=== PATIENT | female | born 1990 | race African-American/Black ===

== ENCOUNTER 2016-10-03 21:26 | Emergency (ER) | payer SELFPAY ==
[~2016-10-03] VITALS: Ht 152.4 cm; Wt 45.0 kg
[2016-10-03 21:43] VITALS: BP 129/85; PULSE 100; RESP 18; TEMP 100; O2SAT 98
--- NOTE | 2016-10-03 22:07 | PD ---
HPI Chief Complaint: Abdominal Pain Time Seen by Provider: 22:00 Travel History International Travel<30 days: No Contact w/Intl Traveler<30days: No Traveled to known affect area: No History of Present Illness HPI 26yo F with PMH of nephrolithiasis, appendectomy presents to the ED with c/o generalized pain an hour prior to arrival. As per [facility], pt walked to them with normal mental status but blood glucose was 28 and 33 on separate machines. Pt given 25gm of D10. Blood glucose in the ED is 122. Pt states she has not eaten anything since yesterday. States pain is mainly in left flank to abdomen and down thighs. Pt has been here multiple times for abdominal pain. Pt is allergic to toradol. Denies any fever, chest pain, sob, n/v, diarrhea, vaginal bleeding or discharge, or possibility of . PFSH Past Medical History Asthma: No Blood Disorders: No Anxiety: No Depression: Yes Heart Rhythm Problems: No Cancer: No Cardiovascular Problems: No High Cholesterol: No Chemotherapy: No Chest Pain: No Congestive Heart Failure: No COPD: No Diabetes: No Diminished Hearing: No Endocrine: No Gastrointestinal Disorders: No Genitourinary: Yes (KIDNEY STONES) Immune Disorder: No Kidney Stones: Yes Musculoskeletal: No Neurologic: No Psychiatric: No Reproductive: Yes (HX OVARYAN CYST) Respiratory: No Immunizations Current: Yes Radiation Therapy: No Sleep Apnea: No Thyroid Disease: No ?: Not : 0 Para: 0 Miscarriage: 0 : 0 Ovarian Cysts: Yes Past Surgical History Abdominal Surgery: Yes (BOWEL SURGERY) Appendectomy: Yes Cholecystectomy: No Genitourinary Surgery: Yes (STENT RIGHT KIDNEY/LITHOTRIPSY) Neurologic Surgery: No Other Surgery: Yes Social History Alcohol Use: No Tobacco Use: Yes Substance Use: No (marijuan) Allergies-Medications (Allergen,Severity, Reaction): Coded Allergies: Toradol (Verified Allergy, Intermediate, Itching, 10/03/16) Reported Meds & Prescriptions Reported Meds & Active Scripts Active Acetaminophen Extra Strength (Acetaminophen) 500 Mg Cap 500 Mg PO Q6H PRN Cipro (Ciprofloxacin HCl) 250 Mg Tab 250 Mg PO BID 3 Days Review of Systems Except as stated in HPI: all other systems reviewed are Neg Physical Exam Narrative GENERAL: 26yo F crying. SKIN: Warm and dry. HEAD: Atraumatic. Normocephalic. EYES: Pupils equal and round at 3mm. EOMI. ENT: No nasal bleeding or discharge. Mucous membranes pink and moist. NECK: Trachea midline. No JVD. CARDIOVASCULAR: Regular rate and rhythm. No murmur appreciated. RESPIRATORY: No accessory muscle use. Clear to auscultation. Breath sounds equal bilaterally. GASTROINTESTINAL: Abdomen soft, very mild left flank ttp. No abdominal ttp. No rebound tenderness or guarding. MUSCULOSKELETAL: No obvious deformities. No clubbing. No cyanosis. No edema. NEUROLOGICAL: Awake and alert. No obvious cranial nerve deficits. Motor grossly within normal limits. Normal speech. PSYCHIATRIC: Appropriate mood and affect; insight and judgment normal. Data Data Last Documented VS Vital Signs Date Time Temp Pulse Resp B/P Pulse Ox O2 Delivery O2 Flow Rate FiO2 10/04/16 03:00 92 20 122/72 98 Room Air 10/03/16 21:43 100.0 Orders Complete Blood Count With Diff (10/03/16 22:00) Basic Metabolic Panel (Bmp) (10/03/16 22:00) Lactic Acid Sepsis Protocol (10/03/16 22:00) Urinalysis - C+S If Indicated (10/03/16 22:00) Ed Urine Pregnancytest Poc (10/03/16 22:00) Sodium Chlor 0.9% 1000 Ml Inj (Ns 1000 M (10/03/16 23:00) Acetaminophen (Tylenol) (10/03/16 23:15) Ed Poc Ultrasound (10/03/16 ) Cath For Specimen (10/03/16 23:12) Influenzae A/B Antigen (10/03/16 23:27) Urine Culture (10/04/16 00:20) Ceftriaxone Inj (Rocephin Inj) (10/04/16 01:00) Labs Laboratory Tests Test 10/03/16 10/03/16 10/04/16 22:15 22:38 00:20 Sodium Level 138 MEQ/L Potassium Level 3.7 MEQ/L Chloride Level 105 MEQ/L Carbon Dioxide Level 25.2 MEQ/L Anion Gap 8 MEQ/L Blood Urea Nitrogen 12 MG/DL Creatinine 0.88 MG/DL Estimat Glomerular Filtration 93 ML/MIN Rate Random Glucose 42 MG/DL Calcium Level 8.9 MG/DL White Blood Count 7.3 TH/MM3 Red Blood Count 3.95 MIL/MM3 Hemoglobin 13.4 GM/DL Hematocrit 39.5 % Mean Corpuscular Volume 100.2 FL Mean Corpuscular Hemoglobin 34.0 PG Mean Corpuscular Hemoglobin 33.9 % Concent Red Cell Distribution Width 13.0 % Platelet Count 237 TH/MM3 Mean Platelet Volume 9.1 FL Neutrophils (%) (Auto) 83.6 % Lymphocytes (%) (Auto) 8.6 % Monocytes (%) (Auto) 6.2 % Eosinophils (%) (Auto) 1.4 % Basophils (%) (Auto) 0.2 % Neutrophils # (Auto) 6.1 TH/MM3 Lymphocytes # (Auto) 0.6 TH/MM3 Monocytes # (Auto) 0.5 TH/MM3 Eosinophils # (Auto) 0.1 TH/MM3 Basophils # (Auto) 0.0 TH/MM3 CBC Comment DIFF FINAL Differential Comment Lactic Acid Level 1.4 mmol/L Urine Color YELLOW Urine Turbidity HAZY Urine pH 6.5 Urine Specific [place] 1.014 Urine Protein NEG mg/dL Urine Glucose (UA) 150 mg/dL Urine Ketones NEG mg/dL Urine Occult Blood NEG Urine Nitrite NEG Urine Bilirubin NEG Urine Urobilinogen LESS THAN 2.0 MG/DL Urine Leukocyte Esterase LARGE Urine RBC 6 /hpf Urine WBC 15 /hpf Urine Squamous Epithelial 19 /hpf Cells Urine Amorphous Sediment RARE Urine Bacteria OCC /hpf Urine Mucus FEW /lpf Microscopic Urinalysis Comment CULTURE INDICATED MDM Medical Decision Making Medical Screen Exam Complete: Yes Emergency Medical Condition: Yes Differential Diagnosis Nephrolithiasis vs. musculoskeletal pain vs. malingering vs. pyelonephritis vs. electrolyte abnormality vs. insulinoma Narrative Course 26yo F with PMH of nephrolithiasis here for generalized pain for an hour prior to coming. As per [facility], pt was hypoglycemic but normal mental status. Pt has no history of diabetes and denies taking any medications that were for diabetes. Pt now admits to having no money and not eating for a few days. States she is very hungry and wants food. Pt given food. Pt's blood glucose here in the ED was 122 after receiving 25gm of D10. Labs reviewed, no leukocytosis. Random glucose from lab was 42. I checked pt' s blood glucose again and it was 102. Pt has not been symptomatic at all in the ED. Unknown why the glucose was so low. Bedside US did not show any hydronephrosis. Influenza negative. Lactic acid is normal at 1.4. Pt is well appearing and not in distress. Given acetaminophen for generalized body pain. Abdominal exam is unremarkable. UA: large leukocyte, WBC 15. Pt given ceftriaxone 1gm IV. Strict return precautions given. Procedures Procedure Narrative Emergency department urinary tract ultrasound was performed with patient consent. Curvilinear probe was used in the transverse and sagittal views in the bilateral flank and suprapubic region without evidence of hydronephrosis. Pt had large bladder but urinated right after ultrasound. Diagnosis Primary Impression: UTI (urinary tract infection) Qualified Code: N39.0 - Urinary tract infection without hematuria, site unspecified Patient Instructions: General Instructions Departure Forms: Tests/Procedures Additional Instructions: Please follow up with PMD in 1-2 days for further evaluation of hypoglycemia. Return to the ED if symptoms worsen. Med/Other Pt SpecificInfo: Prescription(s) given Scripts Acetaminophen (Acetaminophen Extra Strength)500 Mg [id number] Mg PO Q6H PRN #20 CAP Ref 0 Prov:Christy Borrego DO 10/04/16 Ciprofloxacin (Cipro)250 Mg [id number] Mg PO BID 3 Days Ref 0 Prov:Christy Borrego DO 10/04/16 Disposition: 01 DISCHARGE HOME Condition: Stable Christy Borrego DO Oct 03, 2016 22:07
[2016-10-03 22:26] LABS: AUTOMATED NEUTROPHIL # 6.1 TH/MM3 (1.8-7.7); BASOPHIL % 0.2 % (0.0-2.0); EOSINOPHIL # 0.1 TH/MM3 (0-0.4); EOSINOPHIL % 1.4 % (0.0-4.0); HEMATOCRIT 39.5 % (35.0-46.0); HEMO FLAGS DIFF FINAL; LYMPH % 8.6 % (9.0-44.0); LYMPHOCYTE # 0.6 TH/MM3 (1.0-4.8); MEAN CELL VOLUME 100.2 FL (80.0-100.0); MEAN CORPUSCULAR HGB CONC 33.9 % (32.0-36.0); MONO % 6.2 % (0.0-8.0); NEUT % 83.6 % (16.0-70.0); PLATELET COUNT 237 TH/MM3 (150-450); RED BLOOD COUNT 3.95 MIL/MM3 (4.00-5.30); WHITE BLOOD COUNT 7.3 TH/MM3 (4.0-11.0)
[2016-10-03 23:00] VITALS: BP 126/70; PULSE 89; RESP 20; O2SAT 98
[2016-10-03] MEDS ORDERED: SODIUM CHLOR 0.9% 1000 ML INJ 1,000 ML IV ONE (23:00)
[2016-10-03] MEDS ORDERED: ACETAMINOPHEN 325 MG TAB PO ONE (23:15)
[2016-10-03 23:16] LABS: BICARBONATE 25.2 MEQ/L (21.0-32.0); POTASSIUM 3.7 MEQ/L (3.5-5.1)
[2016-10-04 00:39] LABS: BACTERIA, URINE OCC /hpf; BLOOD, URINE NEG (NEG); COMMENT (UR) CULTURE INDICATED; CULTURE IF INDICATED CULTURE INDICATED; GLUCOSE,URINE 150 mg/dL (NEG); KETONE, URINE NEG (NEG); MUCUS URINE FEW /lpf (OCC); NITRITE,URINE NEG (NEG); PH, URINE 6.5 (5.0-8.5); SQUAMOUS EPITHELIAL CELL URINE 19 /hpf (0-5); URINE COLOR YELLOW (YELLW/STRAW)
[2016-10-04] MEDS ORDERED: CIPR250T52 PO (00:53)
[2016-10-04] MEDS ORDERED: EXTR500C PO (00:54)
[2016-10-04] MEDS ORDERED: cefTRIAXone INJ 1,000 MG in SODIUM CHLORIDE 0.9% INJ 100 ML IV ONE (01:00)
[2016-10-04 03:00] VITALS: BP 122/72; PULSE 92; RESP 20; O2SAT 98
== END 2016-10-04 06:55 | disposition home or self-care (01) ==
LOC: NEPA 21:26
DX: N39.0 Urinary tract infection, site not specified (principal); B96.89 Other specified bacterial agents as the cause of diseases classified elsewhere; Z87.442 Personal history of urinary calculi
CPT/HCPCS: 80048; 81001; 83605; 84703; 85025; 87086; 87804; 96361; 96365; 96366; 99284; J0696; J7030

== ENCOUNTER 2017-01-02 14:07 | Emergency (ER) | payer OTHER ==
[~2017-01-02] VITALS: Ht 152.4 cm; Wt 43.0 kg
[~2017-01-02 14:07] MED LIST: CIPR250T52 PO; EXTR500C PO
[2017-01-02 15:24] VITALS: BP 101/75; PULSE 81; RESP 20; TEMP 97.8; O2SAT 95
[2017-01-02 15:59] LABS: AUTOMATED NEUTROPHIL # 2.2 TH/MM3 (1.8-7.7); BASOPHIL % 0.6 % (0.0-2.0); EOSINOPHIL # 0.1 TH/MM3 (0-0.4); EOSINOPHIL % 3.1 % (0.0-4.0); HEMO FLAGS DIFF FINAL; LYMPH % 32.7 % (9.0-44.0); LYMPHOCYTE # 1.4 TH/MM3 (1.0-4.8); MEAN CORPUSCULAR HEMOGLOBIN 34.4 PG (27.0-34.0); MEAN CORPUSCULAR HGB CONC 34.4 % (32.0-36.0); MONO % 10.4 % (0.0-8.0); NEUT % 53.2 % (16.0-70.0); PLATELET COUNT 267 TH/MM3 (150-450); RED CELL DISTRIBUTION WIDTH 13.1 % (11.6-17.2); WHITE BLOOD COUNT 4.2 TH/MM3 (4.0-11.0)
[2017-01-02 16:11] LABS: ANION GAP 7 MEQ/L (5-15); AST (GOT) 14 U/L (15-37); BICARBONATE 28.3 MEQ/L (21.0-32.0); BLOOD UREA NITROGEN 9 MG/DL (7-18); CHLORIDE 105 MEQ/L (98-107); GLOMERULAR FILTRATION RATE 79 ML/MIN (>89); POTASSIUM 4.7 MEQ/L (3.5-5.1); SODIUM (NA) 140 MEQ/L (136-145)
[2017-01-02 16:14] LABS: AMPHETAMINE, URINE NEG (NEG); BARBITURATES, URINE NEG (NEG); COCAINE, URINE NEG (NEG)
[2017-01-02 16:15] LABS: ALKALINE PHOSPHATASE 72 U/L (45-117); ALT (GPT) 15 U/L (10-53); TOTAL BILIRUBIN ADULT 0.7 MG/DL (0.2-1.0)
--- NOTE | 2017-01-02 16:45 | PD ---
HPI Chief Complaint: Psychiatric Symptoms Time Seen by Provider: 16:41 Travel History International Travel<30 days: No Contact w/Intl Traveler<30days: No Traveled to known affect area: No History of Present Illness HPI 26-year-old female that presents to the ED for evaluation of Farrukh act. Patient was Farrukh acted by police after an apparent she was acting bizarre in a straight. Patient made some comments about not wanting to live anymore and she was Farrukh acted because of this. She does have a history of depression. She takes no medications. Is a history of marijuana abuse. Per patient she does not want to be here and she states that she made a "bad comment and now she is paying for it". She has no plan. No chest pain. Denies any medical issues. Per patient her symptoms of being worsening because of her stressors. PFSH Past Medical History Asthma: No Blood Disorders: No Anxiety: No Depression: Yes Heart Rhythm Problems: No Cancer: No Cardiovascular Problems: No High Cholesterol: No Chemotherapy: No Chest Pain: No Congestive Heart Failure: No COPD: No Diabetes: No Diminished Hearing: No Endocrine: No Gastrointestinal Disorders: No Genitourinary: Yes (KIDNEY STONES) Immune Disorder: No Kidney Stones: Yes Musculoskeletal: No Neurologic: No Psychiatric: No Reproductive: Yes (HX OVARYAN CYST) Respiratory: No Immunizations Current: Yes Radiation Therapy: No Sleep Apnea: No Thyroid Disease: No : 0 Para: 0 Miscarriage: 0 : 0 Ovarian Cysts: Yes Past Surgical History Abdominal Surgery: Yes (BOWEL SURGERY) Appendectomy: Yes Cholecystectomy: No Genitourinary Surgery: Yes (STENT RIGHT KIDNEY/LITHOTRIPSY) Neurologic Surgery: No Other Surgery: Yes Social History Alcohol Use: No Tobacco Use: Yes Substance Use: No (marijuan) Allergies-Medications (Allergen,Severity, Reaction): Coded Allergies: Toradol (Verified Allergy, Intermediate, Itching, 10/03/16) Reported Meds & Prescriptions Reported Meds & Active Scripts Active Acetaminophen Extra Strength (Acetaminophen) 500 Mg Cap 500 Mg PO Q6H PRN Cipro (Ciprofloxacin HCl) 250 Mg Tab 250 Mg PO BID 3 Days Review of Systems Except as stated in HPI: all other systems reviewed are Neg Physical Exam Narrative GENERAL: SKIN: Warm and dry. HEAD: Atraumatic. Normocephalic. EYES: Pupils equal and round. No scleral icterus. No injection or drainage. ENT: No nasal bleeding or discharge. Mucous membranes pink and moist. Tongue is midline. No uvula deviation. NECK: Trachea midline. No JVD. CARDIOVASCULAR: Regular rate and rhythm. No murmurs, S3, S4. RESPIRATORY: No accessory muscle use. Clear to auscultation. Breath sounds equal bilaterally. GASTROINTESTINAL: Abdomen soft, non-tender, nondistended. Hepatic and splenic margins not palpable. MUSCULOSKELETAL: Extremities without clubbing, cyanosis, or edema. No obvious deformities. Full range of motion of the upper and lower extremities bilaterally. 2+ pulses bilaterally. NEUROLOGICAL: Awake and alert. No obvious cranial nerve deficits. Motor grossly within normal limits. Five out of 5 muscle strength in the arms and legs. Normal speech. PSYCHIATRIC: Appropriate mood and affect; insight and judgment normal. Data Data Last Documented VS Vital Signs Date Time Temp Pulse Resp B/P Pulse Ox O2 Delivery O2 Flow Rate FiO2 01/02/17 15:24 97.8 81 20 101/75 95 Orders Complete Blood Count With Diff (01/02/17 14:31) Comprehensive Metabolic Panel (01/02/17 14:31) Ed Urine Pregnancytest Poc (01/02/17 14:31) Psych Screen (01/02/17 14:31) Drug Screen, Random Urine (01/02/17 14:31) Alcohol (Ethanol) (01/02/17 14:31) Labs Laboratory Tests Test 01/02/17 15:19 White Blood Count 4.2 TH/MM3 Red Blood Count 4.00 MIL/MM3 Hemoglobin 13.8 GM/DL Hematocrit 40.0 % Mean Corpuscular Volume 100.0 FL Mean Corpuscular Hemoglobin 34.4 PG Mean Corpuscular Hemoglobin 34.4 % Concent Red Cell Distribution Width 13.1 % Platelet Count 267 TH/MM3 Mean Platelet Volume 8.8 FL Neutrophils (%) (Auto) 53.2 % Lymphocytes (%) (Auto) 32.7 % Monocytes (%) (Auto) 10.4 % Eosinophils (%) (Auto) 3.1 % Basophils (%) (Auto) 0.6 % Neutrophils # (Auto) 2.2 TH/MM3 Lymphocytes # (Auto) 1.4 TH/MM3 Monocytes # (Auto) 0.4 TH/MM3 Eosinophils # (Auto) 0.1 TH/MM3 Basophils # (Auto) 0.0 TH/MM3 CBC Comment DIFF FINAL Differential Comment Sodium Level 140 MEQ/L Potassium Level 4.7 MEQ/L Chloride Level 105 MEQ/L Carbon Dioxide Level 28.3 MEQ/L Anion Gap 7 MEQ/L Blood Urea Nitrogen 9 MG/DL Creatinine 1.01 MG/DL Estimat Glomerular Filtration 79 ML/MIN Rate Random Glucose 57 MG/DL Calcium Level 9.8 MG/DL Total Bilirubin 0.7 MG/DL Aspartate Amino Transf 14 U/L (AST/SGOT) Alanine Aminotransferase 15 U/L (ALT/SGPT) Alkaline Phosphatase 72 U/L Total Protein 8.3 GM/DL Albumin 4.4 GM/DL Urine Opiates Screen NEG Urine Barbiturates Screen NEG Urine Amphetamines Screen NEG Urine Benzodiazepines Screen NEG Urine Cocaine Screen NEG Urine Cannabinoids Screen POS Ethyl Alcohol Level LESS THAN 3 MG/DL MDM Medical Decision Making Medical Screen Exam Complete: Yes Emergency Medical Condition: Yes Medical Record Reviewed: Yes Interpretation(s) CBC & BMP Diagram 01/02/17 15:19 LFTs WNL tox possitive for cannabionids Differential Diagnosis Depression versus suicidal ideation versus anxiety versus adjustment disorder versus mood disorder versus bipolar disorder versus schizophrenia versus paranoid disorder versus psychosis versus substance abuse versus alcohol abuse versus alcohol induced psychosis versus homicidality addition versus cutting versus personality disorder Narrative Course 18-year-old female that presents to the ED for evaluation of Chadwick act. Patient was properly examined and was found to have signs and symptoms consistent psychiatric illness. No sign of acute medical distress. Labs were drawn. Patient was medically clear. Okay to be seen by psych. Mental health screening was discussed with the patient. Diagnosis Primary Impression: Depression Qualified Code: F33.1 - Moderate episode of recurrent major depressive disorder Additional Impression: Hypoglycemia Joseph Whelan January 02, 2017 16:45
[2017-01-02 22:06] VITALS: BP 101/61; PULSE 74; RESP 16; O2SAT 97
[2017-01-02 23:10] VITALS: BP 102/60; PULSE 76; RESP 18; O2SAT 97
[2017-01-03 00:30] VITALS: BP 101/62; PULSE 74; RESP 18; O2SAT 96
[2017-01-03 01:30] VITALS: BP 100/62; PULSE 70; RESP 18; O2SAT 97
[2017-01-03 02:45] VITALS: BP 101/62; PULSE 77; RESP 18; O2SAT 97
[2017-01-03 04:00] VITALS: BP 103/64; PULSE 76; RESP 18; O2SAT 98
[2017-01-03 06:01] VITALS: BP 103/65; PULSE 84; RESP 18; O2SAT 98
--- NOTE | 2017-01-03 11:34 | PD.CONS ---
Provisional Diagnosis Admission Date [place] I. Adjustment disorder with disturbance of conduct, cannabis use disorder [place] II. Deferred [place] III. No medical history History of Present Illness Service Psychiatry Consult Requested By Primary Care Physician No Primary Care Physician HPI The patient is a 26 year-old woman, domiciled with grandmother and sister in [facility], single, unemployed, without any previous psychiatric history, no previous psychiatric hospitalizations, no previous suicidal attempts , cannabis use disorder, significant medical history presents to the emergency department a Chadwick act for psychiatric evaluation after a fight with her sister , by police, in which she verbalized homicidal ideation. She admitted she used Flacca. On psychiatric evaluation today patient is found sleeping, calm, cooperative. Patient explains that she did not mean that she wanted to kill her sister"I will never do that to my sister, I love her". Her sister is also here on the Chadwick act. She says that she was having a verbal altercation "like many sisters have, no adjustment". She clarifies it was not physical. She denies depressive symptoms, she denies anxiety, she denies manic , she denies perceptual disturbances, she denies suicidal or homicidal ideation , she denies visual and auditory hallucinations. He reports daily use of cannabis, marijuana, sometimes Flacca, denies other drugs, denies alcohol. Review of Systems Constitutional: DENIES: Diaphoretic episodes, Fatigue, Fever, Weight gain, Weight loss, Chills, Dizziness, Change in appetite, Night Sweats Endocrine: DENIES: Abnorml menstrual pattern, Heat/cold intolerance, Polydipsia , Polyuria, Polyphagia Eyes: DENIES: Blurred vision, Diplopia, Eye inflammation, Eye pain, Vision loss , Photosensitivity, Double Vision Ears, nose, mouth, throat: DENIES: Tinnitus, Hearing loss, Vertigo, Nasal discharge, Oral lesions, Throat pain, Hoarseness, Ear Pain, Running Nose, Epistaxis, Sinus Pain, Toothache, Odynophagia Respiratory: DENIES: Apneas, Cough, Snoring, Wheezing, Hemoptysis, Sputum production, Shortness of breath Cardiovascular: DENIES: Chest pain, Palpitations, Syncope, Dyspnea on Exertion , PND, Lower Extremity Edema, Orthopnea, Claudication Gastrointestinal: DENIES: Abdominal pain, Black stools, Bloody stools, Constipation, Diarrhea, Nausea, Vomiting, Difficulty Swallowing, Anorexia Genitourinary: DENIES: Abnormal vaginal bleeding, Dysmenorrhea, Dyspareunia, Sexual dysfunction, Urinary frequency, Urinary incontinence, Urgency, Hematuria , Dysuria, Nocturia, Vaginal discharge Musculoskeletal: DENIES: Joint pain, Muscle aches, Stiffness, Joint Swelling, Back pain, Neck pain Integumentary: DENIES: Abnormal pigmentation, Pruritus, Rash, Nail changes, Breast masses, Breast skin changes, Nipple discharge Hematologic/lymphatic: DENIES: Bruising, Lymphadenopathy Immunologic/allergic: DENIES: Eczema, Urticaria Neurologic: DENIES: Abnormal gait, Headache, Localized weakness, Paresthesias, Seizures, Speech Problems, Tremor, Poor Balance Past Family Social History Coded Allergies: Toradol (Verified Allergy, Intermediate, Itching, 10/03/16) Discontinued Scripts Acetaminophen (Acetaminophen Extra Strength)500 Mg [id number] Mg PO Q6H PRN #20 CAP Ref 0 Prov:Christy Borrego DO 10/04/16 Ciprofloxacin (Cipro)250 Mg [id number] Mg PO BID 3 Days Ref 0 Prov:Christy Borrego DO 10/04/16 Family History Patient denies psychiatric family history Social History Patient was born and raised in [place], she lives in [place] with her grandmother and sister, she is unemployed, single Patient's Strengths (min. 2) Verbal communication Physical Exam Vital Signs Vital Signs Date Time Temp Pulse Resp B/P Pulse Ox O2 Delivery O2 Flow Rate FiO2 01/03/17 06:01 84 18 103/65 98 Room Air 01/02/17 15:24 97.8 Lab Results Toxicology positive for cannabis Mental Status Examination Appearance young woman, good hygiene, short hair, calm and cooperative Speech: Unremarkable Orientation: x3 Memory: Unremarkable Thought Process: Logical Thought Content: Unremarkable Hallucination Type: None Suicidal Ideation: No Homicidal Ideation: No Previous Homicide Attempts: No Insight: Good Affect: Good Affect if Inappropriate: Flat Mood: Appropriate Motor Activity: Normal gait Assessment & Plan Problem List: (1) Adjustment disorder with disturbance of conduct Assessment & Plan: At the moment of this evaluation the patient does not present any acute, concerning her significant evidence symptoms of depression, anxiety, alex or psychosis. Patient is calm, cooperative, and pleasant. Logical, coherent and relevant. She denies suicidal and homicidal ideation, she denies visual and auditory hallucinations. Recent fight with her sister doesn't seem to be related to any acute psychiatric illness decompensation, but to character structure most probably exacerbated by cannabis and Flacca intoxication. Patient does not meet criteria for psychiatric admission at this moment. Motivation, support and psychoeducation provided. Chadwick act will be lifted ICD Code: F43.24 Assessment & Plan Estimated LOS: days Nathaniel Mckeon MD January 03, 2017 11:34
== END 2017-01-03 09:15 | disposition home or self-care (01) ==
LOC: NEDAMB 14:07 → NEPD 01-03 09:15
DX: F32.9 Major depressive disorder, single episode, unspecified (principal); F43.24 Adjustment disorder with disturbance of conduct; E16.2 Hypoglycemia, unspecified; F12.90 Cannabis use, unspecified, uncomplicated; Z72.0 Tobacco use
CPT/HCPCS: 80053; 80307; 84703; 85025; 99284

== ENCOUNTER 2017-01-06 10:00 | Emergency (ER) | payer SELFPAY ==
[~2017-01-06] VITALS: Ht 152.4 cm; Wt 45.0 kg
[2017-01-06 10:01] VITALS: BP 114/74; PULSE 62; RESP 16; TEMP 97.5; O2SAT 99
--- NOTE | 2017-01-06 11:10 | PD ---
HPI Chief Complaint: Psychiatric Symptoms Time Seen by Provider: 11:10 Travel History International Travel<30 days: No Contact w/Intl Traveler<30days: No Traveled to known affect area: No History of Present Illness HPI 26-year-old female with PMH of substance abuse presents to the ED for voluntary evaluation of paranoia, anxiety, auditory hallucinations after smoking Flakka. Patient states that she usually rolls marijuana and Flakka in a cigarette together, last use yesterday morning. She states that since using she has become increasingly anxious, paranoid, hears voices, and has a low appetite. She denies SI or HI. She denies somatic complaints including fevers, chills, abdominal pain, dysuria. She denies risk of . She denies previous psychiatric hospitalization or suicide attempt. She is accompanied by her grandmother. PFSH Past Medical History Asthma: No Blood Disorders: No Anxiety: No Depression: Yes Heart Rhythm Problems: No Cancer: No Cardiovascular Problems: No High Cholesterol: No Chemotherapy: No Chest Pain: No Congestive Heart Failure: No COPD: No Diabetes: No Diminished Hearing: No Endocrine: No Gastrointestinal Disorders: No Genitourinary: Yes (KIDNEY STONES) Immune Disorder: No Kidney Stones: Yes Musculoskeletal: No Neurologic: No Psychiatric: No Reproductive: Yes (HX OVARYAN CYST) Respiratory: No Immunizations Current: Yes Radiation Therapy: No Sleep Apnea: No Thyroid Disease: No : 0 Para: 0 Miscarriage: 0 : 0 Ovarian Cysts: Yes Past Surgical History Abdominal Surgery: Yes (BOWEL SURGERY) Appendectomy: Yes Cholecystectomy: No Genitourinary Surgery: Yes (STENT RIGHT KIDNEY/LITHOTRIPSY) Neurologic Surgery: No Other Surgery: Yes Social History Alcohol Use: No Tobacco Use: Yes Substance Use: Yes (flacca today , marijaunia daily) Allergies-Medications (Allergen,Severity, Reaction): Coded Allergies: Toradol (Verified Allergy, Intermediate, Itching, 01/06/17) Reported Meds & Prescriptions Reported Meds & Active Scripts Active No Active Prescriptions or Reported Medications Review of Systems Except as stated in HPI: all other systems reviewed are Neg Physical Exam Narrative GENERAL: Well-nourished, well-developed thin black female in no acute distress. PSYCHIATRIC: Anxious. No delusional thought processes. No hallucinations. SKIN: Focused skin assessment warm/dry. Multiple tattoos. HEAD: Normocephalic. EYES: No scleral icterus. No injection or drainage. NECK: Supple, trachea midline. No JVD or lymphadenopathy. CARDIOVASCULAR: Regular rate and rhythm without murmurs, gallops, or rubs. RESPIRATORY: Breath sounds clear and equal bilaterally. No accessory muscle use. GASTROINTESTINAL: Abdomen soft, non-tender, nondistended. Hyperactive bowel sounds MUSCULOSKELETAL: No cyanosis, or edema. Patient is ambulatory, moves extremities spontaneously. BACK: Nontender without obvious deformity. No CVA tenderness. Data Data Last Documented VS Vital Signs Date Time Temp Pulse Resp B/P Pulse Ox O2 Delivery O2 Flow Rate FiO2 01/06/17 11:06 65 18 01/06/17 10:01 97.5 114/74 99 Room Air Orders Complete Blood Count With Diff (01/06/17 11:09) Comprehensive Metabolic Panel (01/06/17 11:09) Urinalysis - C+S If Indicated (01/06/17 11:09) Ed Urine Pregnancytest Poc (01/06/17 11:09) Psych Screen (01/06/17 11:09) Drug Screen, Random Urine (01/06/17 11:09) Alcohol (Ethanol) (01/06/17 11:09) Labs Laboratory Tests Test 01/06/17 01/06/17 11:15 11:20 White Blood Count 4.3 TH/MM3 Red Blood Count 4.04 MIL/MM3 Hemoglobin 13.3 GM/DL Hematocrit 41.2 % Mean Corpuscular Volume 101.9 FL Mean Corpuscular Hemoglobin 32.9 PG Mean Corpuscular Hemoglobin 32.3 % Concent Red Cell Distribution Width 12.9 % Platelet Count 251 TH/MM3 Mean Platelet Volume 8.9 FL Neutrophils (%) (Auto) 38.5 % Lymphocytes (%) (Auto) 49.0 % Monocytes (%) (Auto) 7.8 % Eosinophils (%) (Auto) 3.4 % Basophils (%) (Auto) 1.3 % Neutrophils # (Auto) 1.6 TH/MM3 Lymphocytes # (Auto) 2.1 TH/MM3 Monocytes # (Auto) 0.3 TH/MM3 Eosinophils # (Auto) 0.1 TH/MM3 Basophils # (Auto) 0.1 TH/MM3 CBC Comment DIFF FINAL Differential Comment Sodium Level 142 MEQ/L Potassium Level 4.1 MEQ/L Chloride Level 107 MEQ/L Carbon Dioxide Level 29.0 MEQ/L Anion Gap 6 MEQ/L Blood Urea Nitrogen 4 MG/DL Creatinine 0.81 MG/DL Estimat Glomerular Filtration 102 ML/MIN Rate Random Glucose 70 MG/DL Calcium Level 9.6 MG/DL Total Bilirubin 0.4 MG/DL Aspartate Amino Transf 18 U/L (AST/SGOT) Alanine Aminotransferase 15 U/L (ALT/SGPT) Alkaline Phosphatase 67 U/L Total Protein 7.3 GM/DL Albumin 4.0 GM/DL Ethyl Alcohol Level LESS THAN 3 MG/DL Urine Color YELLOW Urine Turbidity HAZY Urine pH 6.0 Urine Specific [place] 1.018 Urine Protein 300 mg/dL Urine Glucose (UA) NEG mg/dL Urine Ketones NEG mg/dL Urine Occult Blood SMALL Urine Nitrite NEG Urine Bilirubin NEG Urine Urobilinogen LESS THAN 2.0 MG/DL Urine Leukocyte Esterase LARGE Urine RBC LESS THAN 1 /hpf Urine WBC 2 /hpf Urine Squamous Epithelial 3 /hpf Cells Urine Bacteria RARE /hpf Urine Mucus FEW /lpf Microscopic Urinalysis Comment CULT NOT INDICATED Urine Opiates Screen NEG Urine Barbiturates Screen NEG Urine Amphetamines Screen NEG Urine Benzodiazepines Screen NEG Urine Cocaine Screen NEG Urine Cannabinoids Screen POS MDM Medical Decision Making Medical Screen Exam Complete: Yes Emergency Medical Condition: Yes Differential Diagnosis Adjustment disorder versus anxiety versus bipolar versus depression versus dementia versus drug-induced psychosis versus electrolyte disorder versus malingering versus mood disorder versus ODD versus psychosis versus PTSD versus schizophrenia versus schizoaffective disorder versus substance-induced mood disorder versus other Narrative Course 26-year-old female with PMH of substance abuse presents to the ED for voluntary evaluation of paranoia, anxiety, auditory hallucinations after smoking Flakka. Last used yesterday morning. Denies SI, HI, previous psychiatric hospitalization or suicide attempt. Denies somatic complaints, risk of . Patient is accompanied by her grandmother. Vitals reviewed. Physical exam reveals an anxious black female in no acute distress. Chest CTAB , abdomen soft, nontender, hyperactive bowel sounds, no CVA tenderness. Patient is ambulatory, moves extremities spontaneously. No concerning abnormalities of CBC, CMP, UA. Tox screen positive for cannabinoids. Alcohol less than 3. Bedside urine test negative. The patient is medically cleared for psychiatric evaluation. Scripts No Active Prescriptions or Reported Meds Agnieszka Sams January 06, 2017 11:10
[2017-01-06 11:42] LABS: AUTOMATED NEUTROPHIL # 1.6 TH/MM3 (1.8-7.7); BASOPHIL # 0.1 TH/MM3 (0-0.2); BASOPHIL % 1.3 % (0.0-2.0); EOSINOPHIL # 0.1 TH/MM3 (0-0.4); EOSINOPHIL % 3.4 % (0.0-4.0); HEMATOCRIT 41.2 % (35.0-46.0); HEMO FLAGS DIFF FINAL; LYMPHOCYTE # 2.1 TH/MM3 (1.0-4.8); MEAN CELL VOLUME 101.9 FL (80.0-100.0); MEAN CORPUSCULAR HEMOGLOBIN 32.9 PG (27.0-34.0); MEAN CORPUSCULAR HGB CONC 32.3 % (32.0-36.0); MONO % 7.8 % (0.0-8.0); NEUT % 38.5 % (16.0-70.0); PLATELET COUNT 251 TH/MM3 (150-450); RED BLOOD COUNT 4.04 MIL/MM3 (4.00-5.30); RED CELL DISTRIBUTION WIDTH 12.9 % (11.6-17.2); WHITE BLOOD COUNT 4.3 TH/MM3 (4.0-11.0)
[2017-01-06 11:50] LABS: BACTERIA, URINE RARE /hpf; BLOOD, URINE SMALL (NEG); GLUCOSE,URINE NEG (NEG); KETONE, URINE NEG (NEG); MUCUS URINE FEW /lpf (OCC); NITRITE,URINE NEG (NEG); SQUAMOUS EPITHELIAL CELL URINE 3 /hpf (0-5); URINE COLOR YELLOW (YELLW/STRAW)
[2017-01-06 11:51] LABS: COMMENT (UR) CULT NOT INDICATED; CULTURE IF INDICATED CULT NOT INDICATED
[2017-01-06 11:54] LABS: ALT (GPT) 15 U/L (10-53); ANION GAP 6 MEQ/L (5-15); AST (GOT) 18 U/L (15-37); BLOOD UREA NITROGEN 4 MG/DL (7-18); CHLORIDE 107 MEQ/L (98-107); GLOMERULAR FILTRATION RATE 102 ML/MIN (>89); POTASSIUM 4.1 MEQ/L (3.5-5.1); SODIUM (NA) 142 MEQ/L (136-145)
[2017-01-06 11:57] LABS: ALKALINE PHOSPHATASE 67 U/L (45-117); TOTAL BILIRUBIN ADULT 0.4 MG/DL (0.2-1.0)
[2017-01-06 12:06] LABS: AMPHETAMINE, URINE NEG (NEG); BARBITURATES, URINE NEG (NEG); COCAINE, URINE NEG (NEG)
[2017-01-06 12:20] VITALS: BP 115/82; PULSE 75; RESP 18; O2SAT 99
== END 2017-01-06 14:29 | disposition left against medical advice (07) ==
LOC: NEPD 10:00 → NETRI 14:29
DX: R44.0 Auditory hallucinations (principal); F12.10 Cannabis abuse, uncomplicated; Z00.8 Encounter for other general examination
CPT/HCPCS: 80053; 80307; 81001; 84703; 85025; 99283

== ENCOUNTER 2017-01-15 12:37 | Emergency (ER) | payer OTHER ==
[~2017-01-15] VITALS: Ht 152.4 cm; Wt 45.5 kg
[2017-01-15 12:38] VITALS: BP 126/65; PULSE 92; RESP 18; TEMP 98.5; O2SAT 99
== END 2017-01-15 12:40 | disposition left against medical advice (07) ==
LOC: NED 12:37
DX: Z53.21 Procedure and treatment not carried out due to patient leaving prior to being seen by health care provider (principal)

== ENCOUNTER 2017-04-21 06:22 | Inpatient (IN) | payer SELFPAY ==
[2017-04-21] VITALS (7 sets, daily range): BP systolic 98–124; BP diastolic 60–78; PULSE 67–89; RESP 16–18; TEMP 96.7–98.5; O2SAT 97–100
[~2017-04-21] VITALS: Ht 162.6 cm; Wt 50.0 kg
[2017-04-21] MEDS ORDERED: SODIUM CHLORIDE 0.9% FLUSH 10 ML FLUSH IV FLUSH PRN (07:00)
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
[2017-04-21] MEDS ORDERED: ONDANSETRON HCL 4 MG/2 ML VIAL IV PUSH ONE (07:15)
[2017-04-21] MEDS ORDERED: MORPHINE SULFATE 4 MG/ML INJ IV PUSH ONE ×2 (07:15→08:45)
[2017-04-21] MEDS ORDERED: SODIUM CHLOR 0.9% 1000 ML INJ 1,000 ML IV ONE (07:15)
[2017-04-21 07:29] LABS: BASOPHIL % 0.4 % (0.0-2.0); EOSINOPHIL # 0.2 TH/MM3 (0-0.4); EOSINOPHIL % 3.8 % (0.0-4.0); HEMATOCRIT 43.3 % (35.0-46.0); HEMO FLAGS DIFF FINAL; LYMPH % 39.8 % (9.0-44.0); LYMPHOCYTE # 2.5 TH/MM3 (1.0-4.8); MEAN CELL VOLUME 101.8 FL (80.0-100.0); MEAN CORPUSCULAR HGB CONC 32.4 % (32.0-36.0); MONO % 8.9 % (0.0-8.0); NEUT % 47.1 % (16.0-70.0); PLATELET COUNT 322 TH/MM3 (150-450); RED BLOOD COUNT 4.25 MIL/MM3 (4.00-5.30); RED CELL DISTRIBUTION WIDTH 12.9 % (11.6-17.2); WHITE BLOOD COUNT 6.4 TH/MM3 (4.0-11.0)
[2017-04-21 08:01] LABS: BACTERIA, URINE MOD /hpf; BLOOD, URINE LARGE (NEG); COMMENT (UR) CULTURE INDICATED; CULTURE IF INDICATED CULTURE INDICATED; GLUCOSE,URINE NEG (NEG); KETONE, URINE NEG (NEG); MUCUS URINE FEW /lpf (OCC); NITRITE,URINE NEG (NEG); PH, URINE 5.5 (5.0-8.5); SQUAMOUS EPITHELIAL CELL URINE 3 /hpf (0-5); URINE COLOR YELLOW (YELLW/STRAW)
[2017-04-21 08:02] LABS: ANION GAP 5 MEQ/L (5-15); AST (GOT) 16 U/L (15-37); BLOOD UREA NITROGEN 7 MG/DL (7-18); CHLORIDE 110 MEQ/L (98-107); GLOMERULAR FILTRATION RATE 106 ML/MIN (>89); POTASSIUM 3.8 MEQ/L (3.5-5.1); SODIUM (NA) 141 MEQ/L (136-145)
[2017-04-21 08:03] LABS: ALT (GPT) 16 U/L (10-53)
[2017-04-21 08:05] LABS: ALKALINE PHOSPHATASE 80 U/L (45-117); TOTAL BILIRUBIN ADULT 0.2 MG/DL (0.2-1.0)
[2017-04-21] MEDS ORDERED: cefTRIAXone INJ 1,000 MG in SODIUM CHLORIDE 0.9% INJ 100 ML IV ONE (08:30)
--- NOTE | 2017-04-21 08:40 | RADRPT ---
EXAM DATE/TIME: 04/21/2017 08:16 [facility] COMPARISON: CT ABDOMEN & PELVIS W/O CONTRAST, August 05, 2014, 5:51. INDICATIONS : Right flank pain. ORAL CONTRAST: No oral contrast ingested. RADIATION DOSE: 13.28 CTDIvol (mGy) MEDICAL HISTORY : Renal calculi. Ovarian cyst. SURGICAL HISTORY : Appendectomy. Lithotripsy. ENCOUNTER: Initial ACUITY: 1 day PAIN SCALE: 6/10 LOCATION: Right flank TECHNIQUE: Volumetric scanning of the abdomen and pelvis was performed. Using automated exposure control and ad justment of the mA and/or kV according to patient size, radiation dose was kept as low as reasonably achievable to obtain optimal diagnostic quality images. DICOM format image data is available electro nically for review and comparison. FINDINGS: LOWER LUNGS: The visualized lower lungs are clear. LIVER: Homogeneous density without lesion. There is no dilation of the biliary tree. No calcified gallston es. SPLEEN: Normal size without lesion. PANCREAS: Within normal limits. KIDNEYS: Multiple bilateral renal calculi measuring between 2 and 5 mm. There is hydronephrosis and hydrourete r on the right secondary to tissue distal ureteral stones. These measure 7 mm and 6 mm respectively. No hydronephrosis or hydroureter on the left. No perinephric stranding. ADRENAL GLANDS: Within normal limits. VASCULAR: There is no aortic aneurysm. BOWEL/MESENTERY: The stomach, small bowel, and colon demonstrate no acute abnormality. There is no free intraperitone al air or fluid. ABDOMINAL WALL: Within normal limits. RETROPERITONEUM: There is no lymphadenopathy. BLADDER: No wall thickening or mass. REPRODUCTIVE: There is a large cyst involving the right adnexa measuring 10.9 x 5.6 cm. Hounsfield units are 7. Thi s cystic lesion is larger from the 2014 exam. It previously measured 8.2 x 5.4 cm. INGUINAL: There is no lymphadenopathy or hernia. MUSCULOSKELETAL: Within normal limits for patient age. CONCLUSION: 1. 2 distal right ureteral stones measuring 7 mm and 6 mm. These are approximately 3 cm from the UVJ. There is resulting obstruction. 2. Bilateral 2-5 mm renal calculi. 3. Enlarging cystic mass within the right adnexa measuring 10.9 x 5.6 cm. In 2013 this measured 8.2 x 5.4 cm. Vitor Murphy Jr., MD on April 21, 2017 at 8:34 Board Certified Radiologist. This report was verified electronically.
[2017-04-21] MEDS ORDERED: MAGNESIUM HYDROXIDE SUSP 30 ML CUP PO PRN (09:15)
[2017-04-21] MEDS ORDERED: ACETAMINOPHEN 325 MG TAB PO PRN ×2 (09:15)
[2017-04-21] MEDS ORDERED: HYDROmorphone HCL 2 MG TAB PO PRN (09:15)
[2017-04-21] MEDS ORDERED: BISACODYL 10 MG SUPP RECTAL PRN (09:15)
[2017-04-21] MEDS ORDERED: NALOXONE HCL 0.4 MG/ML AMP IV PRN (09:15)
[2017-04-21] MEDS ORDERED: SENNOSIDES 8.6 MG TAB PO PRN (09:15)
[2017-04-21] MEDS ORDERED: PROCHLORPERAZINE 25 MG SUPP RECTAL PRN (09:15)
[2017-04-21] MEDS ORDERED: HYDROmorphone HCL PF 1 MG/ML VIAL IV PRN (09:15)
[2017-04-21] MEDS ORDERED: oxyCODONE/ACETAMINOPHEN 5 MG/325 MG TAB PO PRN (09:15)
[2017-04-21] MEDS ORDERED: LACTULOSE SYRUP 20 GM/30 ML CUP PO PRN (09:15)
[2017-04-21] MEDS: HYDROmorphone HCL PF 1 MG/ML VIAL IV PRN ×3 (09:45→22:10)
--- NOTE | 2017-04-21 10:51 | RADRPT ---
EXAM DATE/TIME: 04/21/2017 09:36 [facility] COMPARISON: CT ABDOMEN & PELVIS W/O CONTRAST, April 21, 2017, 8:16. US PELVIS,COMP,W DOPPLER, September 03, 2015, 6:55. INDICATIONS : Abnormal CT. MEDICAL HISTORY : Ovarian cyst. Kidney stones. SURGICAL HISTORY : Bowel surgery. Appendectomy. Right renal stent. Lithotripsy. ENCOUNTER: Initial ACUITY: 1 day PAIN SCORE: 10/10 LOCATION: Pelvis. MEASUREMENTS: UTERUS: 7.0 x 3.9 x 4.4 cm ENDOMETRIAL STRIPE: 7 mm RIGHT OVARY: 10.8 x 5.6 x 6.0 cm LEFT OVARY: 2.7 x 1.2 x 1.9 cm FINDINGS: UTERUS: 1.9 cm probable fibroid within the myometrium. RIGHT OVARY: 10 cm x 8 cm probably cystic mass right neck region that continues to enlarge. LEFT OVARY: Ovary contains no mass or significant cystic lesion. MISCELLANEOUS: No free fluid. CONCLUSION: Enlarging right adnexal mass now measuring 10 cm with small mural nodule. This was first described on 04/03/2015 and measured 6.5 cm. Yovany Smith MD FACR on April 21, 2017 at 10:27 Board Certified Radiologist. This report was verified electronically.
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
[2017-04-21] MEDS: D5-1/2 NS + KCL 20 MEQ INJ 1,000 ML IV SCH ×2 (12:07→21:25)
[2017-04-21] MEDS: NICOTINE 14 MG/24 HR PATCH T-DERMAL ONE ×2 (13:15→13:19)
[2017-04-21] MEDS: ONDANSETRON HCL 4 MG/2 ML VIAL IVP PRN (13:19)
--- NOTE | 2017-04-21 15:35 | PD.CONS ---
HPI Chief Complaint Pain and right adnexal cyst Date Seen: Apr 21, 2017 Travel History International Travel<30 Days: No Contact w/Intl Traveler<30Days: No Known Affected Area: No History of Present Illness HPI Consulted for a 26 year old female with no significant past medical history for abdominal pain with adnexal cyst on CT. Patient states she currently has pain in her back on the right and in her abdomen. The pain is constant, located in the right lower region and radiates to her back. She states she has not had any change in urinary frequency/color/smell or pain/itch on urination. No change in bowel function. Notes some some nausea and vomiting this morning, however none noted since admission. No reports of fever or chills, headache. States she is currently on her period, which is typically regular, moderate with no spotting in between. No recent changes in menstruation. States she is virginal. Weeks Gestation: 0 Para: 0 : 0 Last Menstrual Period: Apr 21, 2017 Miscarriage: 0 : 0 History Past Medical History Medical History: Denies Significant Hx Obstetric History Obstetric History States she is currently virginal Past Surgical History Narrative Surgical Appendectomy for appendicitis with perforation Family History Family History: Negative Social History Alcohol Use: No Tobacco Use: No Substance Abuse: No Allergies-Medications (Allergen,Severity, Reaction): Coded Allergies: ketorolac (Unverified Allergy, Intermediate, Itching, 04/21/17) Home Meds No Active Prescriptions or Reported Meds Review of Systems General / Constitutional: No: Fever, Chills Eyes: No: Diploplia, Blurred Vision, Visual changes, Pain HENT: No: Headaches, Lightheadedness Cardiovascular: No: Irregular Rhythm, Chest Pain or Discomfort, Palpitations, Tachycardia, Syncope Respiratory: Cough (Recent mild cough), No: Short of Breath, Wheezing Gastrointestinal: Nausea, Vomiting, Abdominal Pain, No: Diarrhea, Hematochezia , Constipation Genitourinary: No: Urgency, Frequency, Dysuria, Nocturia, Hematuria, Decreased Urinary Output Musculoskeletal: No: Limited ROM, Weakness Skin: No Rash, No Itching, No Dryness Neurologic: No: Weakness, Dizziness, Headache Psychiatric: No: Anxiety, Depression Physical Exam Vital Signs Date Time Temp Pulse Resp B/P (MAP) Pulse Ox O2 Delivery O2 Flow Rate FiO2 04/21/17 15:05 98.1 62 18 108/63 (78) 100 04/21/17 14:10 98 04/21/17 10:19 83 17 115/67 (83) 97 Room Air 04/21/17 07:31 78 16 111/60 (77) 98 Room Air 04/21/17 07:31 16 04/21/17 06:33 98.5 89 18 124/78 (93) 100 Narrative GENERAL: Well-nourished, well-developed patient. SKIN: Warm and dry. HEAD: Normocephalic and atraumatic. EYES: No scleral icterus. No injection or drainage. ENT: No nasal drainage noted. Mucous membranes pink. Airway patent. NECK: Supple, trachea midline. No JVD. CARDIOVASCULAR: Regular rate and rhythm without murmurs, gallops, or rubs. RESPIRATORY: Breath sounds equal bilaterally. No accessory muscle use. ABDOMEN/GI: Examined after pain medication administration. Abdomen soft, bowel sounds present, no guarding. Tender in RLQ, rebound noted in same area. Notes pain on right side when left side palpated. EXTREMITIES: No cyanosis or edema. BACK: Nontender without obvious deformity. Right sided CVA tenderness. NEUROLOGICAL: Awake and alert. Motor and sensory grossly within normal limits. Five out of 5 muscle strength in all muscle groups. Normal speech. Data Data Orders Orders Complete Blood Count With Diff (04/21/17 06:53) Comprehensive Metabolic Panel (04/21/17 06:53) Lipase (04/21/17 06:53) Urinalysis - C+S If Indicated (04/21/17 06:53) Iv Access Insert/Monitor (04/21/17 06:53) Ecg Monitoring (04/21/17 06:53) Oximetry (04/21/17 06:53) Sodium Chloride 0.9% Flush (Ns Flush) (04/21/17 07:00) Ed Urine Pregnancytest Poc (04/21/17 06:53) Ct Abd/Pel W/O Iv Contrast (04/21/17 ) Morphine Inj (Morphine Inj) (04/21/17 07:15) Ondansetron Inj (Zofran Inj) (04/21/17 07:15) Sodium Chlor 0.9% 1000 Ml Inj (Ns 1000 M (04/21/17 07:15) Urine Culture (04/21/17 07:49) Ceftriaxone Inj (Rocephin Inj) (04/21/17 08:30) Morphine Inj (Morphine Inj) (04/21/17 08:45) NPO (04/21/17 08:59) Consult Urology (04/21/17 ) Comprehensive Metabolic Panel (04/22/17 06:00) Free Thyroxine (T4) (04/22/17 06:00) Hemoglobin (Hgb) A1c (04/22/17 06:00) Magnesium (Mg) (04/22/17 06:00) Phosphorus (Po4) (04/22/17 06:00) Thyroid Stimulating Hormone (04/22/17 06:00) Complete Blood Count With Diff (04/22/17 06:00) Admit Order (Ed Use Only) (04/21/17 09:05) Admit To Inpatient (04/21/17 ) Code Status (04/21/17 09:05) Vital Signs (Adult) Q4H (04/21/17 09:05) Activity Oob Ad Faviola (04/21/17 09:05) Corrugated Sheet Material Sheeter / Telemetry .CONTINUOUS (04/21/17 09:05) Intake + Output NALINI.QSHIFT (04/21/17 09:05) Diet Npo (04/21/17 Breakfast) D5-1/2 Ns + Kcl 20 Meq Inj (D5-1/2 Ns + (04/21/17 11:00) Sodium Chloride 0.9% Flush (Ns Flush) (04/21/17 09:15) Sodium Chloride 0.9% Flush (Ns Flush) (04/21/17 21:00) Acetaminophen (Tylenol) (04/21/17 09:15) Ondansetron Inj (Zofran Inj) (04/21/17 09:15) Prochlorperazine Supp (Compazine Supp) (04/21/17 09:15) Resp Oxygen Ash C Titrat 1-4 L (04/21/17 ) Pt Request For Service (04/21/17 09:05) Ot Request For Service (04/21/17 09:05) Case Management Consult (04/21/17 09:05) Zolpidem (Ambien) (04/21/17 21:00) Scd Bilateral/Knee High NALINI.BID (04/21/17 09:05) Mayank Bilateral/Knee High NALINI.QSHIFT (04/21/17 09:15) Acetaminophen (Tylenol) (04/21/17 09:15) Oxycodone-Acetamin 5-325 Mg (Percocet (04/21/17 09:15) Oxycodone-Acetamin 10-325 Mg (Percocet 1 (04/21/17 09:15) Hydromorphone Pf Inj (Dilaudid Pf Inj) (04/21/17 09:15) Hydromorphone Pf Inj (Dilaudid Pf Inj) (04/21/17 09:15) Naloxone Inj (Narcan Inj) (04/21/17 09:15) Docusate Sodium-Senna (Valarie-Colace) (04/21/17 21:00) Magnesium Hydroxide Liq (Milk Of Magnesi (04/21/17 09:15) Sennosides (Senokot) (04/21/17 09:15) Bisacodyl Supp (Dulcolax Supp) (04/21/17 09:15) Lactulose Liq (Lactulose Liq) (04/21/17 09:15) Inpatient Certification (04/21/17 ) Ceftriaxone Inj (Rocephin Inj) (04/22/17 09:00) (Hub Use Only)Inp Phy Cons/Ref (04/21/17 ) Us Pelvis Comp W Doppler (04/21/17 ) Hydromorphone Pf Inj (Dilaudid Pf Inj) (04/21/17 11:00) Consult Gynecology (04/21/17 ) Nicotine 14 Mg Patch.24 Hr (Habitrol 14 (04/21/17 13:15) Remove Old Patch (04/22/17 09:00) (Hub Use Only)Inp Phy Cons/Ref (04/21/17 ) Nicotine 14 Mg Patch.24 Hr (Habitrol 14 (04/22/17 09:00) Diet Regular Basic (04/21/17 Lunch) Npo After Midnight W/ Po Meds (04/21/17 Lunch) Consent (04/21/17 13:55) Labs Laboratory Tests Test 04/21/17 07:18 04/21/17 07:49 White Blood Count 6.4 Red Blood Count 4.25 Hemoglobin 14.0 Hematocrit 43.3 Mean Corpuscular Volume 101.8 Mean Corpuscular Hemoglobin 33.0 Mean Corpuscular Hemoglobin Concent 32.4 Red Cell Distribution Width 12.9 Platelet Count 322 Mean Platelet Volume 8.6 Neutrophils (%) (Auto) 47.1 Lymphocytes (%) (Auto) 39.8 Monocytes (%) (Auto) 8.9 Eosinophils (%) (Auto) 3.8 Basophils (%) (Auto) 0.4 Neutrophils # (Auto) 3.0 Lymphocytes # (Auto) 2.5 Monocytes # (Auto) 0.6 Eosinophils # (Auto) 0.2 Basophils # (Auto) 0.0 CBC Comment DIFF FINAL Differential Comment Blood Urea Nitrogen 7 Creatinine 0.78 Random Glucose 84 Total Protein 7.4 Albumin 3.6 Calcium Level 9.0 Alkaline Phosphatase 80 Aspartate Amino Transf (AST/SGOT) 16 Alanine Aminotransferase (ALT/SGPT) 16 Total Bilirubin 0.2 Sodium Level 141 Potassium Level 3.8 Chloride Level 110 Carbon Dioxide Level 26.0 Anion Gap 5 Estimat Glomerular Filtration Rate 106 Lipase 152 Urine Color YELLOW Urine Turbidity HAZY Urine pH 5.5 Urine Specific [place] 1.008 Urine Protein TRACE Urine Glucose (UA) NEG Urine Ketones NEG Urine Occult Blood LARGE Urine Nitrite NEG Urine Bilirubin NEG Urine Urobilinogen LESS THAN 2.0 Urine Leukocyte Esterase MOD Urine RBC 28 Urine WBC 19 Urine Squamous Epithelial Cells 3 Urine Bacteria MOD Urine Mucus FEW Microscopic Urinalysis Comment CULTURE INDICATED Date/Time Source Procedure Growth Status 04/21/17 07:49 Urine Random Urine Urine Culture Pending Received MDM Narrative Course / MDM Consulted for a 26 year old female with abdominal and back pain. Enlarging, when compared to 2014 study, right adnexal simple cystic mass 10.9x5.[address] with right ureteral stones, nephrohydrosis, evidence of obstruction. -Have consulted Dr. Madrid who is on for gynecological coverage today. He will see the patient tonight and discuss surgical options. d/w Dr. Chatterjee, Dr. Lay Admitting diagnosis: nephrolithiasis with hydronephrosis, right lower quadrant mass Diagnosis: Right adnexal cyst, pain, hydronephrosis Condition: Stable Scripts No Active Prescriptions or Reported Meds Kurt Laurent MD R1 Apr 21, 2017 15:35
--- NOTE | 2017-04-21 17:20 | HHI.PR ---
Subjective Remarks PAtient has kidney stone that is obstructing right ureter. she has a chronic cystic mass possibly ovarian that is probably scarred beneath loops of bowel on right that is caused by previous ruptured appendix when she was 5 yo. We can trace right adnexal mass back to CT 05/02/2007 when it was 8.9 cm. Objective Vital Signs Date Time Temp Pulse Resp B/P (MAP) Pulse Ox O2 Delivery O2 Flow Rate FiO2 04/21/17 16:00 96.9 67 18 105/65 (78) 99 04/21/17 15:05 98.1 62 18 108/63 (78) 100 04/21/17 14:10 98 04/21/17 10:19 83 17 115/67 (83) 97 Room Air 04/21/17 07:31 78 16 111/60 (77) 98 Room Air 04/21/17 07:31 16 04/21/17 06:33 98.5 89 18 124/78 (93) 100 I/O 04/20/17 04/20/17 04/20/17 04/21/17 04/21/17 04/21/17 07:00 15:00 23:00 07:00 15:00 23:00 Intake Total 1000 ml Balance 1000 ml Intake IV Total 1000 ml # Voids 1 Result Diagram: 04/21/1718 04/21/17 0718 Other Results GENERAL: mild cva tenderness on right EYES: No scleral icterus. No injection or drainage. NECK: Supple, trachea midline. No JVD or lymphadenopathy. CARDIOVASCULAR: Regular rate and rhythm without murmurs, gallops, or rubs. RESPIRATORY: Breath sounds equal bilaterally. No accessory muscle use. GASTROINTESTINAL: Abdomen soft, non-tender, nondistended. MUSCULOSKELETAL: No cyanosis, or edema. BACK: Nontender without obvious deformity. No CVA tenderness. Assessment and Plan Problem List: (1) Right ovarian cyst ICD Codes: N83.201 - Unspecified ovarian cyst, right side Assessment and Plan Chronic right ovarian cyst probably scarred in RLQ. Probable ELAP required with enterolysis for removal. Patient should have stent placed 04/22 and we will reassess patient for potential sureegery that she declined in past. Dustin Madrid MD Apr 21, 2017 17:20
[2017-04-21] MEDS: SODIUM CHLORIDE 0.9% FLUSH 10 ML FLUSH IV FLUSH SCH (21:00)
[2017-04-21] MEDS: DOCUSATE SODIUM 50 MG/SENNA 8.6 MG TAB PO SCH (21:00)
[2017-04-21] MEDS ORDERED: ZOLPIDEM TARTRATE 5 MG TAB PO PRN (21:00)
--- NOTE | 2017-04-21 21:52 | MB ---
cc: KAVITA BRYANT DATE OF CONSULTATION 04/21/2017 HISTORY Ms. Morales is a pleasant 26-year-old female presented with right-sided flank pain with nausea and vomiting over the past 24 hours. She denies any fever or chills but on CT scan imaging she was noted to have two 6 mm calculi in the distal right ureter with hydronephrosis. She also has bilateral 2-5 mm renal calculi present and a right adnexal mass measuring 10.9 x 5 cm in size which is slightly bigger than from before on CT scan. She is presently menstruating and notes some hematuria. PAST MEDICAL HISTORY 1. Noted for a history of kidney stones. 2. Anxiety, depression. 3. Ovarian cyst. PAST SURGICAL HISTORY Noted for: 1. Appendectomy and bowel surgery at age 5. 2. She has also had cystoscopy with stent insertion with lithotripsy. MEDICATIONS She denies any medications. ALLERGIES She denies any allergies. FAMILY HISTORY Denies a history of stones. SOCIAL HISTORY Smokes daily but denies alcohol or illicit drug use. REVIEW OF SYSTEMS Notes nausea, vomiting and has right-sided flank pain and right lower quadrant pain. Denies diarrhea, constipation, chest pain, shortness of breath, headaches, gait disturbances, skin lesions or rashes. The remaining review of systems were reviewed and are negative. PHYSICAL EXAMINATION VITAL SIGNS: Today temperature is 98.1, heart rate 60, respiratory 18, 108/63. GENERAL: She is well-developed, well-nourished 26-year-old female in no acute distress. HEAD, EYES, EARS, NOSE, AND THROAT: Normocephalic, atraumatic. Pupils equal, round, reactive to light. Extraocular movements intact. NECK: Supple. CARDIOVASCULAR: Regular rate and rhythm. LUNGS: Clear. ABDOMEN: Soft, nontender, nondistended with right CVA tenderness noted, however. EXTREMITIES: Show no cyanosis, clubbing or edema. NEUROLOGIC: Cranial nerves II through XII intact. SKIN: There are no lesions. PSYCHIATRIC: Normal mood, some anxiety is noted, however. LABORATORY DATA White count 6.4, hemoglobin 14.0, 43.3 is hematocrit. Platelet count is 322. Sodium 141, potassium 3.8, chloride 110, CO2 26. BUN is 7, creatinine 0.7, glucose of 84. IMAGING STUDIES Again shows nephrolithiasis as well as two 6 mm right distal ureteral calculi identified. ASSESSMENT A 26-year-old female with two 6 mm right UVJ stones causing hydronephrosis and obstruction on the right. Recommend cystoscopy, right ureteroscopy, laser lithotripsy, stone extraction and possible stent insertion. Risk and benefits were discussed with the patient and she is willing to proceed. Thank you for the consult and allowing me to participate in the care of this patient. Kavita OLIVIER/KK /4:37 PM /9:34 PM
[2017-04-22] VITALS: BP 106/66; PULSE 72; RESP 16; TEMP 97; O2SAT 93
[2017-04-22] MEDS ORDERED: SODIUM CHLORID 0.9% 500 ML IV PRN (00:15)
[2017-04-22] MEDS ORDERED: CHLORHEXIDINE GLUCONATE 2 % 1 PACK (2 CLOTHS) TOPICAL PRN (00:15)
[2017-04-22] MEDS ORDERED: LACTATED RINGER'S 1000 ML IV PRN (00:15)
[2017-04-22] MEDS ORDERED: POVIDONE IODINE 5% (ANTISEPSIS KIT) 4 APPLICATIONS EACH NARE PRN (00:15)
[2017-04-22] MEDS: HYDROmorphone HCL PF 1 MG/ML VIAL IV PRN ×5 (03:56→18:42)
[2017-04-22] MEDS: SODIUM CHLORIDE 0.9% FLUSH 10 ML FLUSH IV FLUSH SCH ×2 (07:43→19:29)
[2017-04-22] MEDS: DOCUSATE SODIUM 50 MG/SENNA 8.6 MG TAB PO SCH ×2 (07:43→19:31)
[2017-04-22] MEDS: cefTRIAXone INJ 1,000 MG in SODIUM CHLORIDE 0.9% INJ 100 ML IV SCH (07:44)
[2017-04-22] MEDS: REMOVE OLD PATCH T-DERMAL SCH (07:47)
[2017-04-22] MEDS: NICOTINE 14 MG/24 HR PATCH T-DERMAL SCH (07:48)
[2017-04-22 07:58] LABS: AUTOMATED NEUTROPHIL # 3.5 TH/MM3 (1.8-7.7); BASOPHIL % 0.3 % (0.0-2.0); EOSINOPHIL # 0.3 TH/MM3 (0-0.4); EOSINOPHIL % 4.2 % (0.0-4.0); HEMATOCRIT 40.1 % (35.0-46.0); HEMO FLAGS DIFF FINAL; LYMPH % 44.1 % (9.0-44.0); LYMPHOCYTE # 3.4 TH/MM3 (1.0-4.8); MEAN CELL VOLUME 101.4 FL (80.0-100.0); MEAN CORPUSCULAR HGB CONC 33.6 % (32.0-36.0); MONO % 5.5 % (0.0-8.0); NEUT % 45.9 % (16.0-70.0); PLATELET COUNT 270 TH/MM3 (150-450); RED BLOOD COUNT 3.95 MIL/MM3 (4.00-5.30); RED CELL DISTRIBUTION WIDTH 12.8 % (11.6-17.2); WHITE BLOOD COUNT 7.6 TH/MM3 (4.0-11.0)
[2017-04-22 08:00] VITALS: BP 103/63; PULSE 74; RESP 17; TEMP 97.1; O2SAT 100
[2017-04-22 08:22] LABS: ALKALINE PHOSPHATASE 73 U/L (45-117); ALT (GPT) 15 U/L (10-53); FREE T4 1.29 NG/DL (0.76-1.46); TOTAL BILIRUBIN ADULT 0.2 MG/DL (0.2-1.0)
--- NOTE | 2017-04-22 08:24 | HHI.PR ---
Subjective Remarks This is a pleasant 26 y/o Female who came to ER with 3 days of right flank pain , mid right back pain that radiates into the right flank and into the right groin. The patient has a history of nephrolithiasis with previous lithotripsy several years ago with similar symptoms. Seen by BAR HOSTESS specialist with diagnosis of Chronic right ovarial cyst probably scarred in RLQ, probable surgical removal, she will be assessed after stent placed by Urology specialist she already declined the procedure in the past. she will go for surgery in am tomorrow. Objective Vital Signs Date Time Temp Pulse Resp B/P (MAP) Pulse Ox O2 Delivery O2 Flow Rate FiO2 04/22/17 00:00 97.0 72 16 106/66 (79) 93 04/21/17 20:00 96.7 72 18 98/64 (75) 99 04/21/17 17:30 04/21/17 16:00 96.9 67 18 105/65 (78) 99 04/21/17 15:05 98.1 62 18 108/63 (78) 100 04/21/17 14:10 98 04/21/17 10:19 83 17 115/67 (83) 97 Room Air I/O 04/21/17 04/21/17 04/21/17 04/22/17 04/22/17 04/22/17 07:00 15:00 23:00 07:00 15:00 23:00 Intake Total 1000 ml 1560 ml Balance 1000 ml 1560 ml Intake Oral 360 ml IV Total 1000 ml 1200 ml # Voids 1 2 2 # Bowel Movements 0 Result Diagram: 04/22/17 0730 04/21/17 0718 Imaging Last Impressions Pelvis Ultrasound 04/21/17 0000 Signed Impressions: Service Date/Time: Friday, April 21, 2017 09:36 - CONCLUSION: Enlarging right adnexal mass now measuring 10 cm with small mural nodule. This was first described on 04/03/2015 and measured 6.5 cm. Yovany Smith MD FACR Abdomen/Pelvis CT 04/21/17 0000 Signed Impressions: Service Date/Time: Friday, April 21, 2017 08:16 - CONCLUSION: 1. 2 distal right ureteral stones measuring 7 mm and 6 mm. These are approximately 3 cm from the UVJ. There is resulting obstruction. 2. Bilateral 2-5 mm renal calculi. 3. Enlarging cystic mass within the right adnexa measuring 10.9 x 5.6 cm. In 2014 this measured 8.2 x 5.4 cm. Vitor Murphy Jr., MD Procedures None Other Results Laboratory Tests Test 04/21/17 07:18 04/21/17 07:49 04/22/17 07:30 Estimat Glomerular Filtration Rate 106 ML/MIN Lipase 152 U/L Urine Color YELLOW Urine Turbidity HAZY Urine pH 5.5 Urine Specific [place] 1.008 Urine Protein TRACE mg/dL Urine Glucose (UA) NEG mg/dL Urine Ketones NEG mg/dL Urine Occult Blood LARGE Urine Nitrite NEG Urine Bilirubin NEG Urine Urobilinogen LESS THAN 2.0 MG/DL Urine Leukocyte Esterase MOD Urine RBC 28 /hpf Urine WBC 19 /hpf Urine Squamous Epithelial Cells 3 /hpf Urine Bacteria MOD /hpf Urine Mucus FEW /lpf Microscopic Urinalysis Comment CULTURE INDICATED White Blood Count 7.6 TH/MM3 Red Blood Count 3.95 MIL/MM3 Hemoglobin 13.4 GM/DL Hematocrit 40.1 % Mean Corpuscular Volume 101.4 FL Mean Corpuscular Hemoglobin 34.0 PG Mean Corpuscular Hemoglobin Concent 33.6 % Red Cell Distribution Width 12.8 % Platelet Count 270 TH/MM3 Mean Platelet Volume 9.1 FL Neutrophils (%) (Auto) 45.9 % Lymphocytes (%) (Auto) 44.1 % Monocytes (%) (Auto) 5.5 % Eosinophils (%) (Auto) 4.2 % Basophils (%) (Auto) 0.3 % Neutrophils # (Auto) 3.5 TH/MM3 Lymphocytes # (Auto) 3.4 TH/MM3 Monocytes # (Auto) 0.4 TH/MM3 Eosinophils # (Auto) 0.3 TH/MM3 Basophils # (Auto) 0.0 TH/MM3 CBC Comment DIFF FINAL Differential Comment Objective Remarks GENERAL: No acute distress. SKIN: No rashes, ecchymoses or lesions. Cool and dry. Multiple tattoos all over her body including her face EYES: Pupils equal round and reactive. Extraocular motions intact. ENT: Nose without bleeding. NECK: Supple, no JVD, no Lymphadenopathy. CARDIOVASCULAR: Regular rate and rhythm without murmurs. RESPIRATORY: Clear to auscultation. Breath sounds equal bilaterally. No wheezes , rales, or rhonchi. GASTROINTESTINAL: Abdomen soft, some tenderness, nondistended. No hepato- splenomegaly, or palpable masses. No guarding. Some right flank pain. Some mild abdominal pain now after medications old scar from previous surgery right CVA tenderness MUSCULOSKELETAL: no clubbing cyanosis or edema. NEUROLOGICAL: Awake and alert. No focal deficits. Medications and IVs Current Medications Medications (Trade) Dose Ordered Sig/Catracho Route Start Time Stop Time Status Last Admin Potassium Chloride/Dextrose/ Sod Cl 1,000 ml @ 100 mls/hr Q10H IV 04/21/17 11:00 04/21/17 21:25 (NS Flush) 2 ml UNSCH PRN IV FLUSH 04/21/17 09:15 (NS Flush) 2 ml BID IV FLUSH 04/21/17 21:00 04/22/17 07:43 (Tylenol) 650 mg Q4H PRN PO 04/21/17 09:15 (Zofran Inj) 4 mg Q6H PRN IVP 04/21/17 09:15 04/21/17 13:19 (Compazine Supp) 25 mg Q12H PRN RECTAL 04/21/17 09:15 (Ambien) 5 mg HS PRN PO 04/21/17 21:00 (Tylenol) 650 mg Q6H PRN PO 04/21/17 09:15 (Percocet 5-325 Mg) 1 tab Q6H PRN PO 04/21/17 09:15 (Percocet 10-325 Mg) 1 tab Q6H PRN PO 04/21/17 09:15 (Dilaudid Pf Inj) 0.5 mg Q3H PRN IV 04/21/17 09:15 (Dilaudid Pf Inj) 1 mg Q3H PRN IV 04/21/17 09:15 04/22/17 07:43 (Narcan Inj) 0.4 mg UNSCH PRN IV 04/21/17 09:15 (Valarie-Colace) 1 tab BID PO 04/21/17 21:00 04/22/17 07:43 (Milk Of Magnesia Liq) 30 ml Q12H PRN PO 04/21/17 09:15 (Senokot) 17.2 mg Q12H PRN PO 04/21/17 09:15 (Dulcolax Supp) 10 mg DAILY PRN RECTAL 8/28/17 09:15 (Lactulose Liq) 30 ml DAILY PRN PO 04/21/17 09:15 Ceftriaxone Sodium 1000 mg/ Sodium Chloride 100 ml @ 200 mls/hr Q24H IV 04/22/17 09:00 04/22/17 07:44 (Dilaudid Pf Inj) 2 mg Q4H PRN IV 04/21/17 11:00 (Habitrol 14 Mg Patch.24 Hr) 1 patch DAILY T-DERMAL 04/22/17 09:00 Miscellaneous Information 1 DAILY T-DERMAL 04/22/17 09:00 Lactated Ringer's 1,000 ml @ 30 mls/hr Q24H PRN IV 04/22/17 00:15 04/25/17 00:14 Sodium Chloride 500 ml @ 30 mls/hr [id number] PRN IV 04/22/17 00:15 04/25/17 00:14 (Betadine 5% Antisepsis Kit) 1 applic CAT AND DOG BATHER PRN EACH NARE 04/22/17 00:15 04/25/17 00:14 (Chlorhexidine 2% Cloth) 3 pack CAT AND DOG BATHER PRN TOPICAL 04/22/17 00:15 04/25/17 00:14 A/P Assessment and Plan Right-sided nephrolithiasis. We'll consult urology keep her nothing by mouth. Continue on the Rocephin continue on pain medications. will go for procedure in am tomorrow. Hydronephrosis and renal and ureteral calculus obstructions await urology consult continue on pain medications continue on Rocephin Chronic Right Ovarian cyst probably scarred in RLQ, for probable Exploratory Laparotomy will reassess after Stent placed by Urology Tobacco abuse continue on NicoDerm patch, strongly recommended to stop smoking. FLACCA use recommend cessation Marijuana use recommend cessation Anxiety and depression monitor. Not taking any medications at home for this Pain control Code Status Full code Discussed Condition With Patient and nurse, all questions answered to the best of my abilities. Discharge Planning Once cleared by specialists. iJgar Jacques MD Apr 22, 2017 8:24 am
[2017-04-22 08:25] LABS: ANION GAP 6 MEQ/L (5-15); AST (GOT) 16 U/L (15-37); BICARBONATE 27.1 MEQ/L (21.0-32.0); BLOOD UREA NITROGEN 3 MG/DL (7-18); CHLORIDE 108 MEQ/L (98-107); GLOMERULAR FILTRATION RATE 106 ML/MIN (>89); MAGNESIUM 1.9 MG/DL (1.5-2.5); SODIUM (NA) 141 MEQ/L (136-145)
[2017-04-22] MEDS: SODIUM CHLORIDE 0.9% FLUSH 10 ML FLUSH IV FLUSH PRN ×3 (11:23→18:44)
[2017-04-22 12:00] VITALS: BP 103/68; PULSE 54; RESP 16; TEMP 96.4; O2SAT 100
[2017-04-22 12:46] LABS: HEMOGLOBIN A1a 1.5 %; HEMOGLOBIN A1b 0.7 %; HEMOGLOBIN Ao 85.1 %; HEMOGLOBIN F 2.4 %; HEMOGLOBIN LA1C 1.7 %; HEMOGLOBIN P3 3.2 %
--- NOTE | 2017-04-22 15:13 | HHI.PR ---
Subjective Patient symptoms today Pt seen and examined. Ate earlier. Surgery cancelled. OR in AM. Objective Vital Signs Vital Signs Date Time Temp Pulse Resp B/P (MAP) Pulse Ox O2 Delivery O2 Flow Rate FiO2 04/22/17 12:00 96.4 54 16 103/68 (80) 100 04/22/17 08:00 97.1 74 17 103/63 (76) 100 04/22/17 00:00 97.0 72 16 106/66 (79) 93 04/21/17 20:00 96.7 72 18 98/64 (75) 99 04/21/17 17:30 04/21/17 16:00 96.9 67 18 105/65 (78) 99 Intake & Output 04/22/17 04/22/17 07:00 19:00 Intake Total 900 ml Balance 900 ml IV Total 900 ml # Voids 2 Result Diagram: 04/22/1772904/22/17729 Objective Remarks Abd:soft,right LQ tenderness Medications and IVs Current Medications Medications (Trade) Dose Ordered Sig/Catracho Route Start Time Stop Time Status Last Admin Potassium Chloride/Dextrose/ Sod Cl 1,000 ml @ 100 mls/hr Q10H IV 04/21/17 11:00 04/21/17 21:25 (NS Flush) 2 ml UNSCH PRN IV FLUSH 04/21/17 09:15 04/22/17 11:23 (NS Flush) 2 ml BID IV FLUSH 04/21/17 21:00 04/22/17 07:43 (Tylenol) 650 mg Q4H PRN PO 04/21/17 09:15 (Zofran Inj) 4 mg Q6H PRN IVP 04/21/17 09:15 04/21/17 13:19 (Compazine Supp) 25 mg Q12H PRN RECTAL 04/21/17 09:15 (Ambien) 5 mg HS PRN PO 04/21/17 21:00 (Tylenol) 650 mg Q6H PRN PO 04/21/17 09:15 (Percocet 5-325 Mg) 1 tab Q6H PRN PO 04/21/17 09:15 (Percocet 10-325 Mg) 1 tab Q6H PRN PO 04/21/17 09:15 (Dilaudid Pf Inj) 0.5 mg Q3H PRN IV 04/21/17 09:15 (Dilaudid Pf Inj) 1 mg Q3H PRN IV 04/21/17 09:15 04/22/17 11:23 (Narcan Inj) 0.4 mg UNSCH PRN IV 04/21/17 09:15 (Valarie-Colace) 1 tab BID PO 04/21/17 21:00 04/22/17 07:43 (Milk Of Magnesia Liq) 30 ml Q12H PRN PO 04/21/17 09:15 (Senokot) 17.2 mg Q12H PRN PO 04/21/17 09:15 (Dulcolax Supp) 10 mg DAILY PRN RECTAL 04/21/17 09:15 (Lactulose Liq) 30 ml DAILY PRN PO 04/21/17 09:15 Ceftriaxone Sodium 1000 mg/ Sodium Chloride 100 ml @ 200 mls/hr Q24H IV 04/22/17 09:00 04/22/17 07:44 (Dilaudid Pf Inj) 2 mg Q4H PRN IV 04/21/17 11:00 (Habitrol 14 Mg Patch.24 Hr) 1 patch DAILY T-DERMAL 04/22/17 09:00 Miscellaneous Information 1 DAILY T-DERMAL 04/22/17 09:00 Lactated Ringer's 1,000 ml @ 30 mls/hr Q24H PRN IV 04/22/17 00:15 04/25/17 00:14 Sodium Chloride 500 ml @ 30 mls/hr [id number] PRN IV 04/22/17 00:15 04/25/17 00:14 (Betadine 5% Antisepsis Kit) 1 applic NEWSPAPER COPY EDITOR PRN EACH NARE 04/22/17 00:15 04/25/17 00:14 (Chlorhexidine 2% Cloth) 3 pack NEWSPAPER COPY EDITOR PRN TOPICAL 04/22/17 00:15 04/25/17 00:14 Assessment and Plan Assessment and Plan 26 y.o. female with (2) 6mm right lower ureteral stones For OR in AM. NPO after MN. Jersey Adlre DO Apr 22, 2017 15:13
[2017-04-22] MEDS: D5-1/2 NS + KCL 20 MEQ INJ 1,000 ML IV SCH (15:49)
[2017-04-22 16:00] VITALS: BP 108/67; PULSE 53; RESP 16; TEMP 97.5; O2SAT 100
[2017-04-22] MEDS: ONDANSETRON HCL 4 MG/2 ML VIAL IVP PRN (19:44)
[2017-04-22 20:00] VITALS: BP 93/57; PULSE 93; RESP 16; TEMP 97.2; O2SAT 97
[2017-04-22 21:46] VITALS: O2SAT 99
[2017-04-22] MEDS: HYDROmorphone HCL PF 2 MG/ML VIAL IV PRN (22:04)
[2017-04-23 00:58] VITALS: BP 92/51; PULSE 56; RESP 16; TEMP 97.6; O2SAT 100
[2017-04-23] MEDS: HYDROmorphone HCL PF 2 MG/ML VIAL IV PRN ×3 (01:57→10:03)
[2017-04-23] MEDS: D5-1/2 NS + KCL 20 MEQ INJ 1,000 ML IV SCH (03:00)
[2017-04-23 08:00] VITALS: BP 104/61; PULSE 77; RESP 16; TEMP 96.2; O2SAT 96
[2017-04-23] MEDS: cefTRIAXone INJ 1,000 MG in SODIUM CHLORIDE 0.9% INJ 100 ML IV SCH (08:09)
[2017-04-23] MEDS: DOCUSATE SODIUM 50 MG/SENNA 8.6 MG TAB PO SCH ×2 (08:09→20:23)
[2017-04-23] MEDS: REMOVE OLD PATCH T-DERMAL SCH (08:11)
[2017-04-23] MEDS: NICOTINE 14 MG/24 HR PATCH T-DERMAL SCH (08:11)
[2017-04-23] MEDS: SODIUM CHLORIDE 0.9% FLUSH 10 ML FLUSH IV FLUSH SCH ×2 (08:12→20:22)
--- NOTE | 2017-04-23 08:20 | HHI.PR ---
Subjective Remarks This is a pleasant 26 y/o Female who came to ER with 3 days of right flank pain , mid right back pain that radiates into the right flank and into the right groin. The patient has a history of nephrolithiasis with previous lithotripsy several years ago with similar symptoms. Seen by EMERGENCY ROOM DOCTOR specialist with diagnosis of Chronic right ovarial cyst probably scarred in RLQ, probable surgical removal, she will be assessed after stent placed by Urology specialist she already declined the procedure in the past. 04/23: Stable in her bedroom at this time COBBLER SOLE and Nurse Present Miss Sun, no complaint awaiting for procedure by Urology specialist, the patient is NPO, no nausea, vomit or diarrhea, no pain. Objective Vital Signs Date Time Temp Pulse Resp B/P (MAP) Pulse Ox O2 Delivery O2 Flow Rate FiO2 04/23/17 06:32 18 04/23/17 00:58 97.6 56 16 92/51 (65) 100 04/22/17 21:46 99 04/22/17 20:00 97.2 93 16 93/57 (69) 97 04/22/17 16:20 16 04/22/17 16:00 97.5 53 16 108/67 (81) 100 04/22/17 12:00 96.4 54 16 103/68 (80) 100 I/O 04/22/17 04/22/17 04/22/17 04/23/17 04/23/17 04/23/17 07:00 15:00 23:00 07:00 15:00 23:00 Intake Total 1100 ml 300 ml Balance 1100 ml 300 ml Intake Oral 300 ml IV Total 1100 ml # Voids 2 4 1 # Bowel Movements 0 Result Diagram: 04/22/17 0730 04/22/17 0730 Imaging Last Impressions Pelvis Ultrasound 04/21/17 0000 Signed Impressions: Service Date/Time: Friday, April 21, 2017 09:36 - CONCLUSION: Enlarging right adnexal mass now measuring 10 cm with small mural nodule. This was first described on 04/03/2015 and measured 6.5 cm. Yovany Smith MD FACR Abdomen/Pelvis CT 04/21/17 0000 Signed Impressions: Service Date/Time: Friday, April 21, 2017 08:16 - CONCLUSION: 1. 2 distal right ureteral stones measuring 7 mm and 6 mm. These are approximately 3 cm from the UVJ. There is resulting obstruction. 2. Bilateral 2-5 mm renal calculi. 3. Enlarging cystic mass within the right adnexa measuring 10.9 x 5.6 cm. In 2013 this measured 8.2 x 5.4 cm. Vitor Murphy Jr., MD Procedures None Other Results Laboratory Tests Test 04/21/17 07:18 04/21/17 07:49 04/22/17 07:30 Lipase 152 U/L Urine Color YELLOW Urine Turbidity HAZY Urine pH 5.5 Urine Specific [place] 1.008 Urine Protein TRACE mg/dL Urine Glucose (UA) NEG mg/dL Urine Ketones NEG mg/dL Urine Occult Blood LARGE Urine Nitrite NEG Urine Bilirubin NEG Urine Urobilinogen LESS THAN 2.0 MG/DL Urine Leukocyte Esterase MOD Urine RBC 28 /hpf Urine WBC 19 /hpf Urine Squamous Epithelial Cells 3 /hpf Urine Bacteria MOD /hpf Urine Mucus FEW /lpf Microscopic Urinalysis Comment CULTURE INDICATED White Blood Count 7.6 TH/MM3 Red Blood Count 3.95 MIL/MM3 Hemoglobin 13.4 GM/DL Hematocrit 40.1 % Mean Corpuscular Volume 101.4 FL Mean Corpuscular Hemoglobin 34.0 PG Mean Corpuscular Hemoglobin Concent 33.6 % Red Cell Distribution Width 12.8 % Platelet Count 270 TH/MM3 Mean Platelet Volume 9.1 FL Neutrophils (%) (Auto) 45.9 % Lymphocytes (%) (Auto) 44.1 % Monocytes (%) (Auto) 5.5 % Eosinophils (%) (Auto) 4.2 % Basophils (%) (Auto) 0.3 % Neutrophils # (Auto) 3.5 TH/MM3 Lymphocytes # (Auto) 3.4 TH/MM3 Monocytes # (Auto) 0.4 TH/MM3 Eosinophils # (Auto) 0.3 TH/MM3 Basophils # (Auto) 0.0 TH/MM3 CBC Comment DIFF FINAL Differential Comment Blood Urea Nitrogen 3 MG/DL Creatinine 0.78 MG/DL Random Glucose 83 MG/DL Total Protein 7.3 GM/DL Albumin 3.4 GM/DL Calcium Level 8.5 MG/DL Phosphorus Level 3.3 MG/DL Magnesium Level 1.9 MG/DL Alkaline Phosphatase 73 U/L Aspartate Amino Transf (AST/SGOT) 16 U/L Alanine Aminotransferase (ALT/SGPT) 15 U/L Total Bilirubin 0.2 MG/DL Sodium Level 141 MEQ/L Potassium Level 4.0 MEQ/L Chloride Level 108 MEQ/L Carbon Dioxide Level 27.1 MEQ/L Anion Gap 6 MEQ/L Estimat Glomerular Filtration Rate 106 ML/MIN Hemoglobin A1c 5.2 % Free Thyroxine 1.29 NG/DL Thyroid Stimulating Hormone 3rd Gen 2.360 uIU/ML Objective Remarks GENERAL: No acute distress. SKIN: No rashes, ecchymoses or lesions. Cool and dry. Multiple tattoos all over her body including her face EYES: Pupils equal round and reactive. Extraocular motions intact. ENT: Nose without bleeding. NECK: Supple, no JVD, no Lymphadenopathy. CARDIOVASCULAR: Regular rate and rhythm without murmurs. RESPIRATORY: Clear to auscultation. Breath sounds equal bilaterally. No wheezes , rales, or rhonchi. GASTROINTESTINAL: Abdomen soft, some tenderness, nondistended. No hepato- splenomegaly, or palpable masses. No guarding. Some right flank pain. Some mild abdominal pain now after medications old scar from previous surgery right CVA tenderness MUSCULOSKELETAL: no clubbing cyanosis or edema. NEUROLOGICAL: Awake and alert. No focal deficits. Medications and IVs Current Medications Medications (Trade) Dose Ordered Sig/Catracho Route Start Time Stop Time Status Last Admin Potassium Chloride/Dextrose/ Sod Cl 1,000 ml @ 100 mls/hr Q10H IV 04/21/17 11:00 04/23/17 03:00 (NS Flush) 2 ml UNSCH PRN IV FLUSH 04/21/17 09:15 04/22/17 18:44 (NS Flush) 2 ml BID IV FLUSH 04/21/17 21:00 04/22/17 07:43 (Tylenol) 650 mg Q4H PRN PO 04/21/17 09:15 (Zofran Inj) 4 mg Q6H PRN IVP 04/21/17 09:15 04/22/17 19:44 (Compazine Supp) 25 mg Q12H PRN RECTAL 04/21/17 09:15 (Ambien) 5 mg HS PRN PO 04/21/17 21:00 (Tylenol) 650 mg Q6H PRN PO 04/21/17 09:15 (Percocet 5-325 Mg) 1 tab Q6H PRN PO 04/21/17 09:15 (Percocet 10-325 Mg) 1 tab Q6H PRN PO 04/21/17 09:15 (Dilaudid Pf Inj) 0.5 mg Q3H PRN IV 04/21/17 09:15 (Dilaudid Pf Inj) 1 mg Q3H PRN IV 04/21/17 09:15 04/22/17 18:42 (Narcan Inj) 0.4 mg UNSCH PRN IV 04/21/17 09:15 (Valarie-Colace) 1 tab BID PO 04/21/17 21:00 04/22/17 19:31 (Milk Of Magnesia Liq) 30 ml Q12H PRN PO 04/21/17 09:15 (Senokot) 17.2 mg Q12H PRN PO 04/21/17 09:15 (Dulcolax Supp) 10 mg DAILY PRN RECTAL 04/21/17 09:15 (Lactulose Liq) 30 ml DAILY PRN PO 04/21/17 09:15 Ceftriaxone Sodium 1000 mg/ Sodium Chloride 100 ml @ 200 mls/hr Q24H IV 04/22/17 09:00 04/22/17 07:44 (Dilaudid Pf Inj) 2 mg Q4H PRN IV 04/21/17 11:00 04/23/17 06:02 (Habitrol 14 Mg Patch.24 Hr) 1 patch DAILY T-DERMAL 04/22/17 09:00 Miscellaneous Information 1 DAILY T-DERMAL 04/22/17 09:00 Lactated Ringer's 1,000 ml @ 30 mls/hr Q24H PRN IV 04/22/17 00:15 04/25/17 00:14 Sodium Chloride 500 ml @ 30 mls/hr [id number] PRN IV 04/22/17 00:15 04/25/17 00:14 (Betadine 5% Antisepsis Kit) 1 applic STEAM DRIER TENDER PRN EACH NARE 04/22/17 00:15 04/25/17 00:14 (Chlorhexidine 2% Cloth) 3 pack STEAM DRIER TENDER PRN TOPICAL 04/22/17 00:15 04/25/17 00:14 A/P Assessment and Plan 1. Right-sided nephrolithiasis. as per Urology specialist again with Nephrolithiasis two 6 mm right distal ureteral calculi with Hydronephrosis, recommended Cystoscopy, Right ureteroscopy, Laser, Lithotripsy, stone extraction and possible Stent insertion. this procedure scheduled for later today. continue Antibiotics for UTI. 2. Chronic Right Ovarian cyst probably scarred in RLQ, for probable Exploratory Laparotomy will reassess after Stent placed by Urology 3. Tobacco abuse continue on NicoDerm patch, strongly recommended to stop smoking. 4. FLACCA use recommend cessation 5. Marijuana use recommend cessation 6. Anxiety and depression monitor. Not taking any medications at home for this Code Status Full code Discussed Condition With Patient and nurse Miss Sun, all questions answered to the best of my abilities. Discharge Planning Once cleared by specialists. Jigar Jacques MD Apr 23, 2017 08:20
[2017-04-23] MEDS: SODIUM CHLOR 0.9% 1000 ML INJ 1,000 ML IV SCH ×2 (10:03→18:30)
[2017-04-23] MEDS ORDERED: PROPOFOL 200 MG/20 ML AMP IV ONE (12:00)
[2017-04-23] MEDS ORDERED: LACTATED RINGER'S 1000 ML INJ 1,000 ML IV ONE (12:00)
[2017-04-23] MEDS ORDERED: ePHEDrine/NS 25 MG/5 ML SYR IV ONE (12:00)
[2017-04-23] MEDS ORDERED: PHENYLEPH/NS 1000 MCG/10 ML SYR IV ONE (12:00)
[2017-04-23] MEDS ORDERED: FUROSEMIDE 20 MG/2 ML VIAL IV PUSH ONE (12:00)
[2017-04-23] MEDS ORDERED: ONDANSETRON HCL 4 MG/2 ML VIAL IV PUSH ONE (12:00)
[2017-04-23] MEDS ORDERED: ceFAZolin 1,000 MG/NS 100 ML IV SCH ×2 (14:00)
--- NOTE | 2017-04-23 14:15 | PD.OP ---
Operative Report Date of Surgery: Apr 23, 2017 Preoperative Diagnosis: Right ureteral calculi Postoperative Diagnosis: Same Procedure: Cystoscopy with balloon dilatation of the lower right ureter with ureteroscopy and laser lithotripsy and stone extraction with right retrograde study and right double-J stent insertion Anesthesia: Gen. LMA Surgeon: Jersey Adler Mysql Dba(s): none Resident Surgeon: None Operation and Findings: 18-year-old female presented to the emergency room with two 6 mm right lower ureteral stones with hydronephrosis and obstruction. Patient is also known to have bilateral small renal calculi on CT scan. She presented emergency room with right sided flank pain. Decision was made to bring the patient to the operating room and undergo cystoscopy with ureteroscopy laser lithotripsy with stone extraction and hospital stent insertion. Risk and benefits were discussed preoperatively and she is willing to proceed. Patient is brought to the operating room identified by myself as Dilanlovetommie Morales. She was placed in the dorsal lithotomy position, prepped and draped in usual sterile fashion, received preprocedure antibiotics, and general LMA anesthesia was administered. 22 Armenian cystoscope was inserted in the bladder verdugo cystoscopy did not reveal any abnormalities. A 0.35 sensor wire was passed through the right ureteral orifice and up into the clotting system of the kidney. Wire was left in place. A rigid ureteroscope was attempted to pass through the ureteral orifice but due to narrowing was unable to. A UroMax balloon dilatation system was utilized and passed over the wire into the lower ureter. The dilator was inflated to a pressure of 10 and allowed to sit for 2 minutes. The balloon was then decompressed and the dilator was then removed. I was able to then pass the rigid ureteroscope up into the lower ureter and 2-3 stones were identified. Using the holmium laser a 200 laser fiber at a setting of 8 and 10 was utilized to break up and fragment the stone. Once the stone fragments were fragmented up, I was able to use a nitinol basket retrieval of fragments. These were then sent to pathology. A retrograde studies performed using the rigid ureteroscope demonstrating no more filling defects in the proximal ureter. Decision made then to place a 6 Armenian 20 cm stent over the wire was left in good position with a curl in the kidney and a curl in the bladder with the string still in position. The string was then taped to the patient's leg. The bladder was evacuated and she was woken and transferred from stable condition. She will follow-up next week to undergo string pole in the office. Jersey Adler DO Apr 23, 2017 14:15
[2017-04-23] MEDS ORDERED: DO NOT ADM ANY ANTICOAGULANT DRUGS PRN (14:26)
[2017-04-23] MEDS ORDERED: IOHEXOL 350 MG/ML 50 ML BTL (for RAD DIAG) ONE (14:46)
[2017-04-23 16:00] VITALS: BP 101/59; PULSE 73; RESP 16; TEMP 97; O2SAT 92
[2017-04-23] MEDS: oxyCODONE/ACETAMINOPHEN 10 MG/325 MG TAB PO PRN (16:24)
[2017-04-23 20:00] VITALS: BP 91/52; PULSE 73; RESP 16; TEMP 97; O2SAT 98
[2017-04-23] MEDS: HYDROmorphone HCL PF 1 MG/ML VIAL IV PRN (20:23)
[2017-04-24] VITALS: BP 93/52; PULSE 72; RESP 16; TEMP 97.1; O2SAT 100
[2017-04-24] MEDS: SODIUM CHLOR 0.9% 1000 ML INJ 1,000 ML IV SCH (00:33)
[2017-04-24] MEDS: oxyCODONE/ACETAMINOPHEN 10 MG/325 MG TAB PO PRN ×2 (00:35→08:46)
[2017-04-24] MEDS: HYDROmorphone HCL PF 2 MG/ML VIAL IV PRN (05:07)
[2017-04-24 06:08] VITALS: O2SAT 99
[2017-04-24 06:34] VITALS: BP 88/53
[2017-04-24 08:00] VITALS: BP 99/51; PULSE 65; RESP 18; TEMP 96.2; O2SAT 100
--- NOTE | 2017-04-24 08:20 | HHI.PR ---
Subjective Remarks This is a pleasant 26 y/o Female who came to ER with 3 days of right flank pain , mid right back pain that radiates into the right flank and into the right groin. The patient has a history of nephrolithiasis with previous lithotripsy several years ago with similar symptoms. Seen by [employer] CERTIFIED NETWORK ASSOCIATE specialist with diagnosis of Chronic right ovarial cyst probably scarred in RLQ, probable surgical removal, she will be assessed after stent placed by Urology specialist she already declined the procedure in the past. 04/23: Stable in her bedroom at this time CERTIFIED PATHOLOGY ASSISTANT and Nurse Present Miss Sun, no complaint awaiting for procedure by Urology specialist, the patient is NPO. 04/24: Seen in her bedroom, with Diagnosis of Right ureteral Calculi status post Cystoscopy with balloon dilatation of the lower right ureter with ureteroscopy and laser lithotripsy and stone extraction with right retrograde study and right double-J stent insertion by Urology specialist Doctor Jersey Adler. 04/23/17, today clear for discharge by Urology specialist, follow up next week for string pull, as per Doctor Madrid Refrigeration Tech recommended to follow the patient as outpatient once the Stent is pulled. patient stable for discharge will continue Pyridium, Levaquin and Pain medicine left by Doctor Vitor Putnam. Objective Vital Signs Date Time Temp Pulse Resp B/P (MAP) Pulse Ox O2 Delivery O2 Flow Rate FiO2 04/24/17 08:00 96.2 65 18 99/51 (67) 100 04/24/17 06:34 88/53 (65) 04/24/17 06:08 99 04/24/17 00:00 97.1 72 16 93/52 (66) 100 04/23/17 20:00 97.0 73 16 91/52 (65) 98 04/23/17 16:00 97.0 73 16 101/59 (73) 92 04/23/17 15:00 97.4 86 16 97 04/23/17 14:45 90 20 109/53 (71) 97 Room Air 04/23/17 14:30 97.0 91 16 119/63 (81) 96 Room Air 04/23/17 10:33 16 I/O 04/23/17 04/23/17 04/23/17 04/24/17 04/24/17 04/24/17 07:00 15:00 23:00 07:00 15:00 23:00 Intake Total 1700 ml 992 ml 607 ml Balance 1700 ml 992 ml 607 ml Intake Oral 590 ml IV Total 402 ml 607 ml Other 1700 ml # Voids 1 3 4 0 # Bowel Movements 0 Result Diagram: 04/22/17 0730 04/22/17 0730 Imaging Last Impressions Pelvis Ultrasound 04/21/17 0000 Signed Impressions: Service Date/Time: Friday, April 21, 2017 09:36 - CONCLUSION: Enlarging right adnexal mass now measuring 10 cm with small mural nodule. This was first described on 04/03/2015 and measured 6.5 cm. Yovany Smith MD FACR Abdomen/Pelvis CT 04/21/17 0000 Signed Impressions: Service Date/Time: Friday, April 21, 2017 08:16 - CONCLUSION: 1. 2 distal right ureteral stones measuring 7 mm and 6 mm. These are approximately 3 cm from the UVJ. There is resulting obstruction. 2. Bilateral 2-5 mm renal calculi. 3. Enlarging cystic mass within the right adnexa measuring 10.9 x 5.6 cm. In 2013 this measured 8.2 x 5.4 cm. Vitor Murphy Jr., MD Procedures With Diagnosis of Right ureteral Calculi status post Cystoscopy with balloon dilatation of the lower right ureter with ureteroscopy and laser lithotripsy and stone extraction with right retrograde study and right double-J stent insertion by Urology specialist Doctor Jersey Adler. 04/23/17 Other Results Laboratory Tests Test 04/21/17 07:18 04/21/17 07:49 04/22/17 07:30 Lipase 152 U/L Urine Color YELLOW Urine Turbidity HAZY Urine pH 5.5 Urine Specific [place] 1.008 Urine Protein TRACE mg/dL Urine Glucose (UA) NEG mg/dL Urine Ketones NEG mg/dL Urine Occult Blood LARGE Urine Nitrite NEG Urine Bilirubin NEG Urine Urobilinogen LESS THAN 2.0 MG/DL Urine Leukocyte Esterase MOD Urine RBC 28 /hpf Urine WBC 19 /hpf Urine Squamous Epithelial Cells 3 /hpf Urine Bacteria MOD /hpf Urine Mucus FEW /lpf Microscopic Urinalysis Comment CULTURE INDICATED White Blood Count 7.6 TH/MM3 Red Blood Count 3.95 MIL/MM3 Hemoglobin 13.4 GM/DL Hematocrit 40.1 % Mean Corpuscular Volume 101.4 FL Mean Corpuscular Hemoglobin 34.0 PG Mean Corpuscular Hemoglobin Concent 33.6 % Red Cell Distribution Width 12.8 % Platelet Count 270 TH/MM3 Mean Platelet Volume 9.1 FL Neutrophils (%) (Auto) 45.9 % Lymphocytes (%) (Auto) 44.1 % Monocytes (%) (Auto) 5.5 % Eosinophils (%) (Auto) 4.2 % Basophils (%) (Auto) 0.3 % Neutrophils # (Auto) 3.5 TH/MM3 Lymphocytes # (Auto) 3.4 TH/MM3 Monocytes # (Auto) 0.4 TH/MM3 Eosinophils # (Auto) 0.3 TH/MM3 Basophils # (Auto) 0.0 TH/MM3 CBC Comment DIFF FINAL Differential Comment Blood Urea Nitrogen 3 MG/DL Creatinine 0.78 MG/DL Random Glucose 83 MG/DL Total Protein 7.3 GM/DL Albumin 3.4 GM/DL Calcium Level 8.5 MG/DL Phosphorus Level 3.3 MG/DL Magnesium Level 1.9 MG/DL Alkaline Phosphatase 73 U/L Aspartate Amino Transf (AST/SGOT) 16 U/L Alanine Aminotransferase (ALT/SGPT) 15 U/L Total Bilirubin 0.2 MG/DL Sodium Level 141 MEQ/L Potassium Level 4.0 MEQ/L Chloride Level 108 MEQ/L Carbon Dioxide Level 27.1 MEQ/L Anion Gap 6 MEQ/L Estimat Glomerular Filtration Rate 106 ML/MIN Hemoglobin A1c 5.2 % Free Thyroxine 1.29 NG/DL Thyroid Stimulating Hormone 3rd Gen 2.360 uIU/ML Objective Remarks GENERAL: No acute distress. SKIN: No rashes, ecchymoses or lesions. Cool and dry. Multiple tattoos all over her body including her face EYES: Pupils equal round and reactive. Extraocular motions intact. ENT: Nose without bleeding. NECK: Supple, no JVD, no Lymphadenopathy. CARDIOVASCULAR: Regular rate and rhythm without murmurs. RESPIRATORY: Clear to auscultation. Breath sounds equal bilaterally. No wheezes , rales, or rhonchi. GASTROINTESTINAL: Abdomen soft, some tenderness, nondistended. MUSCULOSKELETAL: no clubbing cyanosis or edema. NEUROLOGICAL: Awake and alert. No focal deficits. Medications and IVs Current Medications Medications (Trade) Dose Ordered Sig/Catracho Route Start Time Stop Time Status Last Admin (NS Flush) 2 ml UNSCH PRN IV FLUSH 04/21/17 09:15 04/22/17 18:44 (NS Flush) 2 ml BID IV FLUSH 04/21/17 21:00 04/22/17 07:43 (Tylenol) 650 mg Q4H PRN PO 04/21/17 09:15 (Zofran Inj) 4 mg Q6H PRN IVP 04/21/17 09:15 04/22/17 19:44 (Compazine Supp) 25 mg Q12H PRN RECTAL 04/21/17 09:15 (Ambien) 5 mg HS PRN PO 04/21/17 21:00 (Tylenol) 650 mg Q6H PRN PO 04/21/17 09:15 (Percocet 5-325 Mg) 1 tab Q6H PRN PO 04/21/17 09:15 (Percocet 10-325 Mg) 1 tab Q6H PRN PO 04/21/17 09:15 04/24/17 00:35 (Dilaudid Pf Inj) 0.5 mg Q3H PRN IV 04/21/17 09:15 (Dilaudid Pf Inj) 1 mg Q3H PRN IV 04/21/17 09:15 04/23/17 20:23 (Narcan Inj) 0.4 mg UNSCH PRN IV 04/21/17 09:15 (Valarie-Colace) 1 tab BID PO 04/21/17 21:00 04/23/17 20:23 (Milk Of Magnesia Liq) 30 ml Q12H PRN PO 04/21/17 09:15 04/24/17 00:32 (Senokot) 17.2 mg Q12H PRN PO 04/21/17 09:15 (Dulcolax Supp) 10 mg DAILY PRN RECTAL 04/21/17 09:15 (Lactulose Liq) 30 ml DAILY PRN PO 04/21/17 09:15 Ceftriaxone Sodium 1000 mg/ Sodium Chloride 100 ml @ 200 mls/hr Q24H IV 04/22/17 09:00 04/23/17 08:09 (Dilaudid Pf Inj) 2 mg Q4H PRN IV 04/21/17 11:00 04/24/17 05:07 (Habitrol 14 Mg Patch.24 Hr) 1 patch DAILY T-DERMAL 04/22/17 09:00 Miscellaneous Information 1 DAILY T-DERMAL 04/22/17 09:00 Lactated Ringer's 1,000 ml @ 30 mls/hr Q24H PRN IV 04/22/17 00:15 04/25/17 00:14 Sodium Chloride 500 ml @ 30 mls/hr [id number] PRN IV 04/22/17 00:15 04/25/17 00:14 (Betadine 5% Antisepsis Kit) 1 applic MEDICAL HOUSEKEEPER PRN EACH NARE 04/22/17 00:15 04/25/17 00:14 (Chlorhexidine 2% Cloth) 3 pack MEDICAL HOUSEKEEPER PRN TOPICAL 04/22/17 00:15 04/25/17 00:14 Sodium Chloride 1,000 ml @ 100 mls/hr Q10H IV 04/23/17 08:30 04/24/17 00:33 Miscellaneous Information ALL NURSING DEPARTME... UNSCH PRN .XX 04/23/17 14:26 04/24/17 14:25 A/P Assessment and Plan 1. Right-sided nephrolithiasis. as per Urology specialist again with Nephrolithiasis two 6 mm right distal ureteral calculi with Hydronephrosis, Status post Cystoscopy with balloon dilatation of the lower right ureter with ureteroscopy and laser lithotripsy and stone extraction with right retrograde study and right double-J stent insertion by Urology specialist Doctor Jersey Adler. 04/23/17 stable okay for discharge left scripts for Levaquin, Pain medicine and Pyridium. 2. Chronic Right Ovarian cyst probably scarred in RLQ, for probable Exploratory Laparotomy will reassess after Stent placed by Urology as per doctor Julius Refrigeration Tech the patient will be seen as outpatient once Urology specialist finishes management. given follow up in one month. 3. Tobacco abuse continue on NicoDerm patch, strongly recommended to stop smoking. 4. FLACCA use recommend cessation 5. Marijuana use recommend cessation 6. Anxiety and depression monitor. Not taking any medications at home for this Code Status Full code Discussed Condition With Patient and nurse Miss Bella in the room , all questions answered to the best of my abilities. Discharge Planning Discharge Now. Jigar Jacques MD Apr 24, 2017 08:20
--- NOTE | 2017-04-24 08:28 | HHI.PR ---
Subjective Patient symptoms today Pt seen and examined. Some flank pain but better overall. Objective Vital Signs Vital Signs Date Time Temp Pulse Resp B/P (MAP) Pulse Ox O2 Delivery O2 Flow Rate FiO2 04/24/17 08:00 96.2 65 18 99/51 (67) 100 04/24/17 06:34 88/53 (65) 04/24/17 06:08 99 04/24/17 00:00 97.1 72 16 93/52 (66) 100 04/23/17 20:00 97.0 73 16 91/52 (65) 98 04/23/17 16:00 97.0 73 16 101/59 (73) 92 04/23/17 15:00 97.4 86 16 97 04/23/17 14:45 90 20 109/53 (71) 97 Room Air 04/23/17 14:30 97.0 91 16 119/63 (81) 96 Room Air 04/23/17 10:33 16 Intake & Output 04/24/17 04/24/17 06:59 18:59 Intake Total 1009 ml Balance 1009 ml IV Total 1009 ml # Voids 0 Result Diagram: 04/22/1772904/22/17729 Objective Remarks Abd:soft,right LQ tenderness 04/24 Abd;soft,nt,nd Voiding Medications and IVs Current Medications Medications (Trade) Dose Ordered Sig/Catracho Route Start Time Stop Time Status Last Admin (NS Flush) 2 ml UNSCH PRN IV FLUSH 04/21/17 09:15 04/22/17 18:44 (NS Flush) 2 ml BID IV FLUSH 04/21/17 21:00 04/22/17 07:43 (Tylenol) 650 mg Q4H PRN PO 04/21/17 09:15 (Zofran Inj) 4 mg Q6H PRN IVP 04/21/17 09:15 04/22/17 19:44 (Compazine Supp) 25 mg Q12H PRN RECTAL 04/21/17 09:15 (Ambien) 5 mg HS PRN PO 04/21/17 21:00 (Tylenol) 650 mg Q6H PRN PO 04/21/17 09:15 (Percocet 5-325 Mg) 1 tab Q6H PRN PO 04/21/17 09:15 (Percocet 10-325 Mg) 1 tab Q6H PRN PO 04/21/17 09:15 04/24/17 00:35 (Dilaudid Pf Inj) 0.5 mg Q3H PRN IV 04/21/17 09:15 (Dilaudid Pf Inj) 1 mg Q3H PRN IV 04/21/17 09:15 04/23/17 20:23 (Narcan Inj) 0.4 mg UNSCH PRN IV 04/21/17 09:15 (Avlarie-Colace) 1 tab BID PO 04/21/17 21:00 04/23/17 20:23 (Milk Of Magnesia Liq) 30 ml Q12H PRN PO 04/21/17 09:15 04/24/17 00:32 (Senokot) 17.2 mg Q12H PRN PO 04/21/17 09:15 (Dulcolax Supp) 10 mg DAILY PRN RECTAL 04/21/17 09:15 (Lactulose Liq) 30 ml DAILY PRN PO 04/21/17 09:15 Ceftriaxone Sodium 1000 mg/ Sodium Chloride 100 ml @ 200 mls/hr Q24H IV 04/22/17 09:00 04/23/17 08:09 (Dilaudid Pf Inj) 2 mg Q4H PRN IV 04/21/17 11:00 04/24/17 05:07 (Habitrol 14 Mg Patch.24 Hr) 1 patch DAILY T-DERMAL 04/22/17 09:00 Miscellaneous Information 1 DAILY T-DERMAL 04/22/17 09:00 Lactated Ringer's 1,000 ml @ 30 mls/hr Q24H PRN IV 04/22/17 00:15 04/25/17 00:14 Sodium Chloride 500 ml @ 30 mls/hr [id number] PRN IV 04/22/17 00:15 04/25/17 00:14 (Betadine 5% Antisepsis Kit) 1 applic IT NETWORK ADMINISTRATOR PRN EACH NARE 04/22/17 00:15 04/25/17 00:14 (Chlorhexidine 2% Cloth) 3 pack IT NETWORK ADMINISTRATOR PRN TOPICAL 04/22/17 00:15 04/25/17 00:14 Sodium Chloride 1,000 ml @ 100 mls/hr Q10H IV 04/23/17 08:30 04/24/17 00:33 Miscellaneous Information ALL NURSING DEPARTME... UNSCH PRN .XX 04/23/17 14:26 04/24/17 14:25 Assessment and Plan Assessment and Plan 26 y.o. female with (2) 6mm right lower ureteral stones For OR in AM. NPO after MN. 04/24 Stable s/p right URS with laser litho and stone extraction Stable for discharge F/U as outpt next week for string pull Case management consult today Jersey Adler DO Apr 24, 2017 08:28
--- NOTE | 2017-04-24 08:34 | HHI.PR ---
Subjective Remarks Patient counselled by Dr Adler today and Stones removed and stent in place. she complains of back pain and is not sure where pain is derived from. I would recommend waiting for removal of stent and then reevaluate pain. Patient has had cyst for 10 years and has not had constant pain and it has not changed much. If pain is persistent she may require surgery but she would need surgical consultation and ELAP for removal of this cyst. Likely adherent to side wall and beneath loops of bowel. Objective Vital Signs Date Time Temp Pulse Resp B/P (MAP) Pulse Ox O2 Delivery O2 Flow Rate FiO2 04/24/17 08:00 96.2 65 18 99/51 (67) 100 04/24/17 06:34 88/53 (65) 04/24/17 06:08 99 04/24/17 00:00 97.1 72 16 93/52 (66) 100 04/23/17 20:00 97.0 73 16 91/52 (65) 98 04/23/17 16:00 97.0 73 16 101/59 (73) 92 04/23/17 15:00 97.4 86 16 97 04/23/17 14:45 90 20 109/53 (71) 97 Room Air 04/23/17 14:30 97.0 91 16 119/63 (81) 96 Room Air 04/23/17 10:33 16 I/O 04/23/17 04/23/17 04/23/17 04/24/17 04/24/17 04/24/17 07:00 15:00 23:00 07:00 15:00 23:00 Intake Total 1700 ml 992 ml 607 ml Balance 1700 ml 992 ml 607 ml Intake Oral 590 ml IV Total 402 ml 607 ml Other 1700 ml # Voids 1 3 4 0 # Bowel Movements 0 Result Diagram: 04/22/17 0730 04/22/17 0730 Procedures Assessment and Plan Problem List: (1) Right ovarian cyst ICD Codes: N83.201 - Unspecified ovarian cyst, right side Plan: Dc home with known chronic cyst. Once stents are removed and patient can have adequate work up for other INSURANCE ANALYST screens. If patient has persistent pain we will take patient to OR. She is aware of plan and agrees with follow up in my office once she has stent removed Assessment and Plan Chronic right ovarian cyst probably scarred in RLQ. Probable ELAP required with enterolysis for removal. Patient should have stent placed 04/22 and we will reassess patient for potential sureegery that she declined in past. Dustin Madrid MD Apr 24, 2017 08:34
[2017-04-24] MEDS: cefTRIAXone INJ 1,000 MG in SODIUM CHLORIDE 0.9% INJ 100 ML IV SCH (08:42)
[2017-04-24] MEDS: REMOVE OLD PATCH T-DERMAL SCH (08:42)
[2017-04-24] MEDS: DOCUSATE SODIUM 50 MG/SENNA 8.6 MG TAB PO SCH (08:42)
[2017-04-24] MEDS: NICOTINE 14 MG/24 HR PATCH T-DERMAL SCH (08:42)
[2017-04-24] MEDS: SODIUM CHLORIDE 0.9% FLUSH 10 ML FLUSH IV FLUSH SCH (08:42)
[2017-04-24] MEDS: ONDANSETRON HCL 4 MG/2 ML VIAL IVP PRN (08:51)
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
[2017-04-24] MEDS ORDERED: HYDR-3533 PO (09:14)
[2017-04-24] MEDS ORDERED: PHEN0.4T PO (09:15)
[2017-04-24] MEDS ORDERED: LEVA500T20 PO (09:16)
== END 2017-04-24 11:39 | disposition home or self-care (01) | DRG 661 ==
LOC: NEPC 06:22 → NEDA 09:07 → N07A 15:24
PROVIDERS: ADMIT Internal Medicine; ATTEND Internal Medicine
PROC: 0TC68ZZ Extirpation of Matter from Right Ureter, Via Natural or Artificial Opening Endoscopic (ICD-10-PCS; 2017-04-23)
PROC: 0T768DZ Dilation of Right Ureter with Intraluminal Device, Via Natural or Artificial Opening Endoscopic (ICD-10-PCS; 2017-04-23)
PROC: BT1D1ZZ Fluoroscopy of Right Kidney, Ureter and Bladder using Low Osmolar Contrast (ICD-10-PCS; 2017-04-23)
PROC: 0T768ZZ Dilation of Right Ureter, Via Natural or Artificial Opening Endoscopic (ICD-10-PCS; principal; 2017-04-23 12:52)
DX: N13.6 Pyonephrosis (principal); F32.9 Major depressive disorder, single episode, unspecified; F41.9 Anxiety disorder, unspecified; F17.210 Nicotine dependence, cigarettes, uncomplicated; N83.201 Unspecified ovarian cyst, right side; Z87.442 Personal history of urinary calculi
CPT/HCPCS: 74176; 74420; 76856; 80053; 81001; 82370; 83036; 83690; 83735; 84100; 84439; 84443; 84703; 85025; 87086; 88300; 93975; 96361; 96374; 96375; 96376; C1726; C1769; C2617; J0696; J1170; J1940; J2270; J2370; J2405; J3480; J7030; J7120; Q9967